=== PATIENT | female | born 1965 | race Caucasian/White ===

== ENCOUNTER 2018-05-01 16:13 | Inpatient (IN) | payer OTHER ==
[~2018-05-01] VITALS: Ht 165.1 cm; Wt 46.1 kg
[2018-05-01 16:00] VITALS: BP 148/67; PULSE 104; RESP 20
[2018-05-01 18:15] VITALS: Ht 165.1 cm; Wt 46.1 kg
--- NOTE | 2018-05-01 18:52 | HP ---
Date/Time of Note Date/Time of Note DATE: 05/01/18 TIME: 18:29 Assessment/Plan VTE Prophylaxis SCD applied (from Nsg): Yes Pharmacological prophylaxis: NA/contraindicated Pharm contraindication: low risk/ambulating Assessment/Plan Assessment/Plan 52 yo homeless woman history of duodenal ulcer presents with chronic abdominal pain and vomiting. #Abdominal pain #Vomiting #History of duodenal ulcer - Differential includes worsening peptic ulcer disease versus acute vs chronic pancreatitis. - Will make NPO, start IV fluids - Consult GI for EGD - PPI BID #Calcific pancreatitis on CT - Lipase 197, will repeat - NPO for now - May be due to heavy alcohol use. DVT: SCDs GI: PPI HPI/ROS Admit Date/Time Admit Date/Time May 01, 2018 at 17:19 Hx of Present Illness Ms. Cornejo is a 52 yo homeless woman transferred here from [facility] with abdominal pain. In Feb 2017 she had a large friable duodenal ulcer found on EGD done at [place]. Duodenal and gastric pathology was negative for malignancy. Since then she's been on pantoprazole. She was dropped to a daily dose about 3 months ago, then 1 week ago stopped completely. For about 1.5 months she reports chronic abdominal pain, intermittently stabbing and burning. This is associated with bilious emesis which occurs about once per day. She takes frequent pepto-bismol and alla-seltzer. Symptoms have been unchanged during this time, but she chose to present to the ED today because outpatient management wasn't working. In [place] ED she was afebrile, vitals stable. WBC 17.0, lipase 197. Ot [facility] labs unremarkable. CT abdomen showed diffuse gastric wall thickening as well as inflammatory changes of the pancreas consistent with chronic calcific pancreatitis. ROS She does report chills. Denies fever, night sweats, headache, vision changes, dysphagia, cough, dyspnea, chest pain/pressure/palpitations, melena, diarrhea, constipation, hematochezia. PMH/Family/Social Past Medical History large duodenal ulcer 02/2017 Past Surgical History "screws in feet" Pharyngeal abscess drainage Social History Homeless, lives in a tent. Alcohol Use: occasionally Smoking Status: Current every day smoker (4 cigars per week) Drug Use: marijuana Exam/Review of Systems Exam Exam Gen: Thin appearing woman anxious appearing no distress. Eyes: PERRL, no icterus HEENT: Moist mucous membranes, clear oropharynx, no pharyngeal erythema. Neck: No lymphadenopathy Card: Regular rate and rhythm, no murmurs Pulm: Clear to auscultation bilaterally Abd: Tender to moderate palpation throughout. Guarding. Normoactive bowel sounds. No rebound tenderness. Ext: No cyanosis/clubbing/edema Skin: warm, dry, well perfused. ANT FARR MD May 01, 2018 18:39
[2018-05-01] MEDS ORDERED: NACL 0.9% 3 ML SYG IV SCH (19:30)
[2018-05-01] MEDS ORDERED: ACETAMINOPHEN 325 MG TAB PO PRN (19:30)
[2018-05-01] MEDS ORDERED: ONDANSETRON 4 MG INJ IV PRN (19:30)
[2018-05-01 20:15] VITALS: BP 115/59; PULSE 100; RESP 18
[2018-05-01] MEDS: SOD CHLORIDE 0.9% 1,000 ML IV SCH (20:35)
[2018-05-01] MEDS: PANTOPRAZOLE 40 MG INJ IV SCH (20:36)
[2018-05-01] MEDS: HYDROCODONE/APAP (5/325) TAB PO PRN (20:36)
[2018-05-02 02:05] VITALS: BP 90/51; PULSE 85; RESP 17
[2018-05-02] MEDS: SOD CHLORIDE 0.9% 1,000 ML IV SCH ×4 (04:59→23:08)
[2018-05-02] MEDS: HYDROCODONE/APAP (5/325) TAB PO PRN ×4 (05:04→23:32)
[2018-05-02] MEDS: PANTOPRAZOLE 40 MG INJ IV SCH ×2 (05:05→17:36)
[2018-05-02 07:25] VITALS: BP 100/56; PULSE 93; RESP 16
--- NOTE | 2018-05-02 14:23 | PN ---
Date/Time of Note Date/Time of Note DATE: 05/02/18 TIME: 14:21 Assessment/Plan VTE Prophylaxis Risk score (from Ns)>0 risk: 1 SCD applied (from Ns): Yes Pharmacological prophylaxis: NA/contraindicated Pharm contraindication: low risk/ambulating Lines/Catheters IV C[facility]ter Type (from [facility]): Peripheral IV Urinary Cath still in place: No Assessment/Plan Assessment/Plan 52 yo homeless woman history of duodenal ulcer presents with chronic abdominal pain and vomiting. #Abdominal pain #Vomiting #History of duodenal ulcer - Differential includes worsening peptic ulcer disease versus acute vs chronic pancreatitis. - NPO, IV fluids - Dr. Villegas consulted. - PPI BID #Calcific pancreatitis on CT - Lipase 197, will repeat - NPO for now - The patient strictly denies heavy alcohol use; reports one beer prior to admission and last drink before that was weeks ago. She denies any alcohol history. DVT: SCDs GI: PPI Result Diagram: 05/02/1852205/02/1823 Results 24hrs Laboratory Tests Test 05/02/18 05:23 White Blood Count 9.6 Red Blood Count 2.93 L Hemoglobin 9.1 L Hematocrit 27.7 L Mean Corpuscular Volume 94.5 Mean Corpuscular Hemoglobin 31.1 Mean Corpuscular Hemoglobin Concent 32.9 Red Cell Distribution Width 13.0 Platelet Count 377 Mean Platelet Volume 9.7 Immature Granulocytes % 0.300 Neutrophils % 59.1 Lymphocytes % 31.7 Monocytes % 6.5 Eosinophils % 1.6 Basophils % 0.8 Nucleated Red Blood Cells % 0.0 Immature Granulocytes # 0.030 Neutrophils # 5.7 Lymphocytes # 3.0 H Monocytes # 0.6 Eosinophils # 0.2 Basophils # 0.1 Nucleated Red Blood Cells # 0.0 Sodium Level 135 Potassium Level 4.2 Chloride Level 105 Carbon Dioxide Level 26 Anion Gap 4 L Blood Urea Nitrogen 21 H Creatinine 0.59 Est Glomerular Filtrat Rate mL/min > 60 Glucose Level 65 L Hemoglobin A1c 5.8 Calcium Level 8.3 L Phosphorus Level 3.1 Magnesium Level 1.7 Total Bilirubin 0.3 Direct Bilirubin 0.00 Indirect Bilirubin 0.3 Aspartate Amino Transf (AST/SGOT) 18 Alanine Aminotransferase (ALT/SGPT) 20 Alkaline Phosphatase 58 Total Protein 5.2 L Albumin 2.7 L Globulin 2.50 Albumin/Globulin Ratio 1.08 Triglycerides Level 68 Cholesterol Level 117 LDL Cholesterol, Calculated 70 HDL Cholesterol 33 L Cholesterol/HDL Ratio 3.5 Thyroid Stimulating Hormone (TSH) 0.949 Subjective 24 Hr Interval Summary Free Text/Dictation No acute overnight events. Continues to have stabbing, burning mid abdominal pain. No nausea. She does report being very hungry. Exam/Review of Systems Exam Vitals Vital Signs Date Temp Pulse Resp B/P (MAP) Pulse Ox O2 O2 Flow FiO2 Time Delivery Rate 05/02/18 98.6 93 16 100/56 96 Room Air 07:25 (71) Exam Gen: Thin appearing woman anxious appearing no distress. Eyes: PERRL, no icterus HEENT: Moist mucous membranes, clear oropharynx, no pharyngeal erythema. Neck: No lymphadenopathy Card: Regular rate and rhythm, no murmurs Pulm: Clear to auscultation bilaterally Abd: Tender to moderate palpation throughout. Guarding. Normoactive bowel sounds. No rebound tenderness. Ext: No cyanosis/clubbing/edema Skin: warm, dry, well perfused. Results Results 24hrs Laboratory Tests Test 05/02/18 05:23 White Blood Count 9.6 Red Blood Count 2.93 L Hemoglobin 9.1 L Hematocrit 27.7 L Mean Corpuscular Volume 94.5 Mean Corpuscular Hemoglobin 31.1 Mean Corpuscular Hemoglobin Concent 32.9 Red Cell Distribution Width 13.0 Platelet Count 377 Mean Platelet Volume 9.7 Immature Granulocytes % 0.300 Neutrophils % 59.1 Lymphocytes % 31.7 Monocytes % 6.5 Eosinophils % 1.6 Basophils % 0.8 Nucleated Red Blood Cells % 0.0 Immature Granulocytes # 0.030 Neutrophils # 5.7 Lymphocytes # 3.0 H Monocytes # 0.6 Eosinophils # 0.2 Basophils # 0.1 Nucleated Red Blood Cells # 0.0 Sodium Level 135 Potassium Level 4.2 Chloride Level 105 Carbon Dioxide Level 26 Anion Gap 4 L Blood Urea Nitrogen 21 H Creatinine 0.59 Est Glomerular Filtrat Rate mL/min > 60 Glucose Level 65 L Hemoglobin A1c 5.8 Calcium Level 8.3 L Phosphorus Level 3.1 Magnesium Level 1.7 Total Bilirubin 0.3 Direct Bilirubin 0.00 Indirect Bilirubin 0.3 Aspartate Amino Transf (AST/SGOT) 18 Alanine Aminotransferase (ALT/SGPT) 20 Alkaline Phosphatase 58 Total Protein 5.2 L Albumin 2.7 L Globulin 2.50 Albumin/Globulin Ratio 1.08 Triglycerides Level 68 Cholesterol Level 117 LDL Cholesterol, Calculated 70 HDL Cholesterol 33 L Cholesterol/HDL Ratio 3.5 Thyroid Stimulating Hormone (TSH) 0.949 Medications Medication Current Medications Sodium Chloride 1,000 ml @ 125 mls/hr Q8H IV Last administered on 05/02/18at 13:20; Admin Dose 125 MLS/HR; Start 05/01/18 at 19:13 IV Flush (NS 3 ml) 3 ml PER PROTOCOL IV ; Start 05/01/18 at 19:30 Ondansetron HCl (Zofran Inj) 4 mg Q6H PRN IV NAUSEA/VOMITING; Start 05/01/18 at 19:30 Acetaminophen (Tylenol Tab) 650 mg Q6H PRN PO .PAIN 1-3 OR TEMP; Start 05/01/18 at 19:30 Acetaminophen/ Hydrocodone Bitart ([place] (5/325)) 1 tab Q6H PRN PO .MOD PAIN 4- 6 Last administered on 05/02/18at 11:19; Admin Dose 1 TAB; Start 05/01/18 at 19:30 Pantoprazole (Protonix Iv) 40 mg BID@0600,1800 IV Last administered on 05/02/18at 05:05; Admin Dose 40 MG; Start 05/01/18 at 21:00 ANT FARR MD May 02, 2018 14:23
--- NOTE | 2018-05-02 14:29 | CONS ---
Assessment/Plan Assessment/Plan Assessment/Plan (Daily) Assessment: Thickening of gastric wall and duodenum on CT History of 3.5 cm duodenal ulcer History of esophageal ulcer EGD 1 year ago Patient has been off PPIs for 2-month Calcific pancreatitis Pancreatic duct dilatation on CT Anemia Daily marijuana smoker Plan: MRCP today May start clear liquid diet Plan for EGD over the weekend Colonoscopy as an outpatient Monitor H&H Transfuse for hemoglobin less than 7.5 Patient seen in collaboration with Dr. Villegas Consultation Date/Type/Reason Admit Date/Time May 01, 2018 at 17:19 Date of Consultation: May 02, 2018 Type of Consult GI Reason for Consultation Abnormal CT-gastric and duodenal thickening, creating duct dilatation Date/Time of Note DATE: 05/02/18 TIME: 14:16 Hx of Present Illness This is a 52-year-old female with history of large duodenal ulcer who presents with abdominal pain, nausea and vomiting, transferred from [facility]. Patient was diagnosed with 3.5 cm duodenal ulcer and esophageal ulcers on EGD 1 year ago. Patient was started on PPIs for 6-month. Patient has been off PPIs for 2-month and now presents with current symptoms. CT of the abdomen shows thickening of the stomach and first portion of duodenum as well as calcific pancreatitis and dilatation of pancreatic duct. Currently patient denies nausea, vomiting, hematemesis, hematochezia, diarrhea or fever. Patient is complaining of moderate epigastric pain. Smokes 2 cigarettes a day. Drinks alcohol occasionally. Smokes marijuana daily. Patient was started on Protonix twice daily. Will order Carafate 4 times daily. 1 dose of GI cocktail. MRCP to evaluate pancreas. Patient can be started on clear liquid diet after MRCP. Plan for EGD during this admission. No history of colonoscopy. Plan for co lonoscopy as an outpatient. Gastrointestinal: no complaints (See HPI) Past Medical History Medical History: peptic ulcer disease Medications Current Medications Sodium Chloride 1,000 ml @ 125 mls/hr Q8H IV Last administered on 05/02/18at 13:20; Admin Dose 125 MLS/HR; Start 05/01/18 at 19:13 IV Flush (NS 3 ml) 3 ml PER PROTOCOL IV ; Start 05/01/18 at 19:30 Ondansetron HCl (Zofran Inj) 4 mg Q6H PRN IV NAUSEA/VOMITING; Start 05/01/18 at 19:30 Acetaminophen (Tylenol Tab) 650 mg Q6H PRN PO .PAIN 1-3 OR TEMP; Start 05/01/18 at 19:30 Acetaminophen/ Hydrocodone Bitart ([place] (5/325)) 1 tab Q6H PRN PO .MOD PAIN 4- 6 Last administered on 05/02/18at 11:19; Admin Dose 1 TAB; Start 05/01/18 at 19:30 Pantoprazole (Protonix Iv) 40 mg BID@0600,1800 IV Last administered on 05/02/18at 05:05; Admin Dose 40 MG; Start 05/01/18 at 21:00 Allergies: Coded Allergies: No Known Allergy (Unverified , 05/01/18) Social History Alcohol Use: occasionally Smoking Status: Current every day smoker (4 cigars per week) Drug Use: marijuana Exam/Review of Systems Exam Vitals Vital Signs Date Temp Pulse Resp B/P (MAP) Pulse Ox O2 O2 Flow FiO2 Time Delivery Rate 05/02/18 98.6 93 16 100/56 96 Room Air 07:25 (71) Exam PHYSICAL EXAMINATION: GENERAL: Well developed, well nourished, alert & oriented x 3, in no acute di stress SKIN: No lesions, no stigmata chronic liver disease, no evidence of bleeding diathesis LYMPHATIC: No palpable lymphadenopathy. HEAD: Normocephalic, atraumatic, no tenderness. EYES: Pupils equal reactive to light and accommodation, full extraocular movements, sclera clear, non-icteric, no discharge. EARS/NOSE AND THROAT: Ears normal, nose normal, oropharynx normal, oral membranes well hydrated without lesions. NECK: Supple, no masses, thyroid normal, JVP within normal limits, carotids norm al without bruits. CHEST: Inspection within normal limits. CARDIOVASCULAR: Heart: Regular rate and rhythm, no murmurs, gallops or rubs. Peripheral pulses present within normal limits, no cyanosis, clubbing or edemas. No pulsatile abdominal mass RESPIRATORY: Lungs clear to auscultation and percussion, no wheezing, no rubs GASTROINTESTINAL AND LIVER: Abdomen: Soft, moderate epigastric tenderness, non- distended, no hernias, no masses, no organomegaly, no ascites, no guarding, no rebound tenderness, normoactive bowel sounds. Rectal: Deferred. GENITOURINARY: Female genitalia within normal limits. EXTREMITIES: No cyanosis, clubbing or edema. Results Result Diagram: 05/02/18 0523 05/02/18 0523 Results 24hrs Laboratory Tests Test 05/02/18 05:23 White Blood Count 9.6 Red Blood Count 2.93 L Hemoglobin 9.1 L Hematocrit 27.7 L Mean Corpuscular Volume 94.5 Mean Corpuscular Hemoglobin 31.1 Mean Corpuscular Hemoglobin Concent 32.9 Red Cell Distribution Width 13.0 Platelet Count 377 Mean Platelet Volume 9.7 Immature Granulocytes % 0.300 Neutrophils % 59.1 Lymphocytes % 31.7 Monocytes % 6.5 Eosinophils % 1.6 Basophils % 0.8 Nucleated Red Blood Cells % 0.0 Immature Granulocytes # 0.030 Neutrophils # 5.7 Lymphocytes # 3.0 H Monocytes # 0.6 Eosinophils # 0.2 Basophils # 0.1 Nucleated Red Blood Cells # 0.0 Sodium Level 135 Potassium Level 4.2 Chloride Level 105 Carbon Dioxide Level 26 Anion Gap 4 L Blood Urea Nitrogen 21 H Creatinine 0.59 Est Glomerular Filtrat Rate mL/min > 60 Glucose Level 65 L Hemoglobin A1c 5.8 Calcium Level 8.3 L Phosphorus Level 3.1 Magnesium Level 1.7 Total Bilirubin 0.3 Direct Bilirubin 0.00 Indirect Bilirubin 0.3 Aspartate Amino Transf (AST/SGOT) 18 Alanine Aminotransferase (ALT/SGPT) 20 Alkaline Phosphatase 58 Total Protein 5.2 L Albumin 2.7 L Globulin 2.50 Albumin/Globulin Ratio 1.08 Triglycerides Level 68 Cholesterol Level 117 LDL Cholesterol, Calculated 70 HDL Cholesterol 33 L Cholesterol/HDL Ratio 3.5 Thyroid Stimulating Hormone (TSH) 0.949 Medications Medication Current Medications Sodium Chloride 1,000 ml @ 125 mls/hr Q8H IV Last administered on 05/02/18at 13:20; Admin Dose 125 MLS/HR; Start 05/01/18 at 19:13 IV Flush (NS 3 ml) 3 ml PER PROTOCOL IV ; Start 05/01/18 at 19:30 Ondansetron HCl (Zofran Inj) 4 mg Q6H PRN IV NAUSEA/VOMITING; Start 05/01/18 at 19:30 Acetaminophen (Tylenol Tab) 650 mg Q6H PRN PO .PAIN 1-3 OR TEMP; Start 05/01/18 at 19:30 Acetaminophen/ Hydrocodone Bitart ([place] (5/325)) 1 tab Q6H PRN PO .MOD PAIN 4- 6 Last administered on 05/02/18at 11:19; Admin Dose 1 TAB; Start 05/01/18 at 19:30 Pantoprazole (Protonix Iv) 40 mg BID@0600,1800 IV Last administered on 05/02/18at 05:05; Admin Dose 40 MG; Start 05/01/18 at 21:00 KEREN DELATORRE NP May 02, 2018 14:26
[2018-05-02] MEDS: SUCRALFATE (100 MG/ML) 10ML CUP PO SCH ×3 (15:14→21:52)
[2018-05-02 15:21] VITALS: BP 100/53; PULSE 77; RESP 17
[2018-05-02 20:22] VITALS: BP 92/54; PULSE 81; RESP 18
[2018-05-03] VITALS (11 sets, daily range): BP systolic 91–128; BP diastolic 41–65; PULSE 63–88; RESP 16–25
[2018-05-03] MEDS: HYDROCODONE/APAP (5/325) TAB PO PRN ×3 (05:52→17:57)
[2018-05-03] MEDS: PANTOPRAZOLE 40 MG INJ IV SCH ×2 (05:52→17:57)
[2018-05-03] MEDS: SOD CHLORIDE 0.9% 1,000 ML IV SCH ×4 (08:37→23:03)
[2018-05-03] MEDS: SUCRALFATE (100 MG/ML) 10ML CUP PO SCH ×5 (09:00→20:24)
--- NOTE | 2018-05-03 10:05 | PREAC ---
Date/Time of Note Date/Time of Note DATE: 05/03/18 TIME: 10:03 Anesthesia Eval and Record Evaluation Time Pre-Procedure Interview DATE: 05/03/18 TIME: 10:03 Age 52 Sex female NPO: 8 hrs Preoperative diagnosis ABDOMINAL PAIN Planned procedure EGD Past Medical History Past Medical History: Includes GI: Other (DUODENAL ULCERS) Heme: Anemia Surgery & Anesthesia Issues No known issue Meds Anticoagulation: No Beta Linette within 24 hr: No Reason Beta Linette not given: Pt. not on B-Linette Current Medications Sodium Chloride 1,000 ml @ 125 mls/hr Q8H IV Last administered on 05/03/18at 08:37; Admin Dose 125 MLS/HR; Start 05/01/18 at 19:13 IV Flush (NS 3 ml) 3 ml PER PROTOCOL IV ; Start 05/01/18 at 19:30 Ondansetron HCl (Zofran Inj) 4 mg Q6H PRN IV NAUSEA/VOMITING; Start 05/01/18 at 19:30 Acetaminophen (Tylenol Tab) 650 mg Q6H PRN PO .PAIN 1-3 OR TEMP; Start 05/01/18 at 19:30 Acetaminophen/ Hydrocodone Bitart ([place] (5/325)) 1 tab Q6H PRN PO .MOD PAIN 4- 6 Last administered on 05/03/18at 05:52; Admin Dose 1 TAB; Start 05/01/18 at 19:30 Pantoprazole (Protonix Iv) 40 mg BID@0600,1800 IV Last administered on 05/03/18at 05:52; Admin Dose 40 MG; Start 05/01/18 at 21:00 Sucralfate (Carafate Susp) 1 gm QID PO Last administered on 05/02/18at 21:52; Admin Dose 1 GM; Start 05/02/18 at 14:30 Meds reviewed: Yes Allergies Coded Allergies: No Known Allergy (Unverified , 05/01/18) Allergies Reviewed: Yes Labs/Studies Labs Reviewed: Reviewed by anesthesiologist Result Diagram: 05/03/1852405/03/18524 Laboratory Tests 05/03/18 05:25 test: Negative Pre-procedure Exam Last vitals Vital Signs Date Temp Pulse Resp B/P (MAP) Pulse Ox O2 O2 Flow FiO2 Time Delivery Rate 05/03/18 97.5 73 18 121/58 100 Room Air 09:48 (79) Airway: Adequate mouth opening, Adequate thyromental dist Mallampati: Mallampati I Teeth: Normal Lung: Normal Heart: Normal ASA Physical Status ASA physical status: 2 Emergency: None Planned Anesthetic General/MAC: MAC Planned Pain Management Parenteral pain med Pre-operative Attestations Prior to commencing anesthesia and surgery, the patient was re-evaluated, there was verification of: *The patient's identity *The results of appropriate recent lab work and preoperative vital signs *The above evaluation not changing prior to induction *Anesthetic plan, risk benefits, alternative and complications discussed with patient/family; questions answered; patient/family understands, accepts and wishes to proceed. KATHERINE MORTENSEN May 03, 2018 10:05
[2018-05-03] MEDS ORDERED: PROPOFOL 40 ML ONE (10:09)
[2018-05-03] MEDS ORDERED: LIDOCAINE 2% (SDV) 5 ML INJ ONE (10:10)
[2018-05-03] MEDS ORDERED: FENTAnyl 50 MCG/ML VIAL IV PRN ×2 (10:30)
[2018-05-03] MEDS ORDERED: LABETALOL HCL 20MG INJ IV PRN (10:30)
[2018-05-03] MEDS ORDERED: EPHEDrine SULFATE 50 MG/5 ML SYG IV PRN (10:30)
[2018-05-03] MEDS ORDERED: ONDANSETRON 4 MG INJ IV PRN (10:30)
[2018-05-03] MEDS ORDERED: METOCLOPRAMIDE 10 MG INJ IV PRN (10:30)
[2018-05-03] MEDS ORDERED: hydrALAzine 20 MG INJ IV PRN (10:30)
--- NOTE | 2018-05-03 10:36 | PAC ---
Date/Time of Note Date/Time of Note DATE: 05/03/18 TIME: 10:36 Post-Anesthesia Notes Post-Anesthesia Note Last documented vital signs Vital Signs Date Temp Pulse Resp B/P (MAP) Pulse Ox O2 O2 Flow FiO2 Time Delivery Rate 05/03/18 97.5 73 18 121/58 100 Room Air 1035 (79) Activity: WNL Respiratory function: WNL Cardiovascular function: WNL Mental status: Baseline Pain reasonably controlled: Yes Hydration appropriate: Yes Nausea/Vomiting absent: Yes KATHERINE MORTENSEN May 03, 2018 10:36
[2018-05-03] MEDS ORDERED: BARIUM SULF 2% 450 ML BTL (BERRY SMOOTHIE) PO ONE (11:00)
[2018-05-03] MEDS ORDERED: SOD CHLORIDE 0.9% 100 ML ONE (14:52)
[2018-05-03] MEDS ORDERED: IOHEXOL 300MG/ML 150 ML BTL ONE (14:52)
[2018-05-03] MEDS ORDERED: BARIUM SULFATE 135 ML (E-Z HD) PO ONE (15:14)
--- NOTE | 2018-05-03 15:54 | PN ---
Date/Time of Note Date/Time of Note DATE: 05/03/18 TIME: 15:48 Assessment/Plan VTE Prophylaxis Risk score (from Nsg)>0 risk: 1 SCD applied (from Nsg): Yes Pharmacological prophylaxis: NA/contraindicated Pharm contraindication: low risk/ambulating Lines/Catheters IV Catheter Type (from Nrs): Peripheral IV Urinary Cath still in place: No Assessment/Plan Assessment/Plan 52 yo homeless woman history of duodenal ulcer presents with chronic abdominal pain and vomiting. #Abdominal pain #Vomiting #duodenal ulcer - s/p EGD on 05/03 showing persistent duodenal ulcer not bleeding. - Continue clear liquid diet. - Dr. Villegas consulted, following. - PPI BID, carafate. - Now pending XR small bowel followthrough and then CT pancreas. #Calcific pancreatitis, chronic - Lipase 197 -> 100 - The patient strictly denies heavy alcohol use; reports one beer prior to [place] and last drink before that was weeks ago. She denies any alcohol history. - On MRI, pancreatic duct does look dilated - Will continue clear liquids. DVT: SCDs GI: PPI Result Diagram: 05/03/18 0525 05/03/18 0525 Subjective 24 Hr Interval Summary Free Text/Dictation To EGD this morning. Had large soft bowel movement after. Continues to have stabbing/burning abdominal pain. Tolerating clear liquids. Exam/Review of Systems Exam Vitals Vital Signs Date Temp Pulse Resp B/P (MAP) Pulse Ox O2 O2 Flow FiO2 Time Delivery Rate 05/03/18 99.1 85 17 111/65 98 Room Air 13:51 (80) Intake and Output 05/02/18 05/02/18 05/03/18 1414:59 22:59 06:59 IntakeIntake Total 1000 ml 735 ml 865 ml BalanceBalance 1000 ml 735 ml 865 ml Exam Gen: Thin appearing woman anxious appearing no distress. Eyes: PERRL, no icterus HEENT: Moist mucous membranes, clear oropharynx, no pharyngeal erythema. Neck: No lymphadenopathy Card: Regular rate and rhythm, no murmurs Pulm: Clear to auscultation bilaterally Abd: Tender to moderate palpation throughout. Guarding. Normoactive bowel sounds. No rebound tenderness. Ext: No cyanosis/clubbing/edema Skin: warm, dry, well perfused. Results Results 24hrs Laboratory Tests Test 05/03/18 05:25 White Blood Count 6.8 # Red Blood Count 2.90 L Hemoglobin 9.0 L Hematocrit 27.9 L Mean Corpuscular Volume 96.2 Mean Corpuscular Hemoglobin 31.0 Mean Corpuscular Hemoglobin Concent 32.3 Red Cell Distribution Width 13.2 Platelet Count 395 Mean Platelet Volume 9.7 Immature Granulocytes % 0.100 Neutrophils % 45.5 Lymphocytes % 44.9 Monocytes % 6.5 Eosinophils % 2.1 Basophils % 0.9 Nucleated Red Blood Cells % 0.0 Immature Granulocytes # 0.010 Neutrophils # 3.1 Lymphocytes # 3.1 H Monocytes # 0.4 Eosinophils # 0.1 Basophils # 0.1 Nucleated Red Blood Cells # 0.0 Sodium Level 138 Potassium Level 4.0 Chloride Level 108 Carbon Dioxide Level 25 Anion Gap 5 Blood Urea Nitrogen 15 Creatinine 0.59 Est Glomerular Filtrat Rate mL/min > 60 Glucose Level 68 L Calcium Level 8.6 Phosphorus Level 3.3 Magnesium Level 1.7 Lipase 104 Medications Medication Current Medications Sodium Chloride 1,000 ml @ 125 mls/hr Q8H IV Last administered on 05/03/18at 08:37; Admin Dose 125 MLS/HR; Start 05/01/18 at 19:13 IV Flush (NS 3 ml) 3 ml PER PROTOCOL IV ; Start 05/01/18 at 19:30 Ondansetron HCl (Zofran Inj) 4 mg Q6H PRN IV NAUSEA/VOMITING; Start 05/01/18 at 19:30 Acetaminophen (Tylenol Tab) 650 mg Q6H PRN PO .PAIN 1-3 OR TEMP; Start 05/01/18 at 19:30 Acetaminophen/ Hydrocodone Bitart ([place] (5/325)) 1 tab Q6H PRN PO .MOD PAIN 4- 6 Last administered on 05/03/18at 11:53; Admin Dose 1 TAB; Start 05/01/18 at 19:30 Pantoprazole (Protonix Iv) 40 mg BID@0600,1800 IV Last administered on 05/03/18at 05:52; Admin Dose 40 MG; Start 05/01/18 at 21:00 Sucralfate (Carafate Susp) 1 gm QID PO Last administered on 05/03/18at 11:54; Admin Dose 1 GM; Start 05/02/18 at 14:30 Fentanyl (Sublimaze) 25 mcg PACU ORDER PRN IV MILD PAIN 1-3; Start 05/03/18 at 10:30; Stop 05/03/18 at 17:00 Fentanyl (Sublimaze) 50 mcg PACU ORDER PRN IV MOD PAIN 4-6; Start 05/03/18 at 10:30; Stop 05/03/18 at 17:00 Ondansetron HCl (Zofran Inj) 4 mg PACU ORDER PRN IV NAUSEA/VOMITING; Start 05/03/18 at 10:30; Stop 05/03/18 at 17:00 Metoclopramide HCl (Reglan) 10 mg PACU ORDER PRN IV NAUSEA/VOMITING; Start 05/03/18 at 10:30; Stop 05/03/18 at 17:00 Labetalol HCl (Labetalol) 5 mg PACU ORDER PRN IV HIGH BLOOD PRESSURE; Start 05/03/18 at 10:30; Stop 05/03/18 at 17:00 Hydralazine HCl (Apresoline) 5 mg PACU ORDER PRN IV HIGH BLOOD PRESSURE; Start 05/03/18 at 10:30; Stop 05/03/18 at 17:00 Ephedrine Sulfate 5 mg PACU ORDER PRN IV BLOOD PRESSURE SUPPORT; Start 05/03/18 at 10:30; Stop 05/03/18 at 17:00 ANT FARR MD May 03, 2018 15:54
[2018-05-03] MEDS ORDERED: SIMETH/SOD BICARB/CIT AC PKT (E-Z- GAS II) PO ONE (16:10)
[2018-05-04] MEDS: HYDROCODONE/APAP (5/325) TAB PO PRN ×4 (00:22→18:38)
[2018-05-04 01:59] VITALS: BP 105/52; PULSE 74; RESP 18
[2018-05-04] MEDS: SOD CHLORIDE 0.9% 1,000 ML IV SCH ×4 (03:13→19:13)
[2018-05-04] MEDS: PANTOPRAZOLE 40 MG INJ IV SCH ×2 (06:29→17:10)
[2018-05-04 07:37] VITALS: BP 107/56; PULSE 73; RESP 16
[2018-05-04] MEDS: SUCRALFATE (100 MG/ML) 10ML CUP PO SCH ×4 (08:54→20:12)
[2018-05-04] MEDS ORDERED: MAGNESIUM SULFATE 2 GM/50 ML 50 ML IVPB ONE (10:30)
[2018-05-04 15:08] VITALS: BP 141/66; PULSE 91; RESP 17
--- NOTE | 2018-05-04 15:41 | PN ---
Date/Time of Note Date/Time of Note DATE: 05/04/18 TIME: 15:33 Assessment/Plan VTE Prophylaxis Risk score (from Nsg)>0 risk: 1 SCD applied (from Ns): Yes Pharmacological prophylaxis: NA/contraindicated Pharm contraindication: low risk/ambulating Lines/Catheters IV Catheter Type (from Nrsg): Peripheral IV Urinary Cath still in place: No Assessment/Plan Assessment/Plan 52 yo homeless woman history of duodenal ulcer presents with chronic abdominal pain and vomiting. #Abdominal pain #Vomiting #duodenal ulcer - s/p EGD on 05/03 showing persistent duodenal ulcer not bleeding. - Continue clear liquid diet, advance per GI - Dr. Villegas consulted - PPI BID, carafate. - XR small bowel followthrough negative for obstruction #Calcific pancreatitis, chronic - Lipase 197 -> 100 - The patient strictly denies heavy alcohol use; reports one beer prior to admission and last drink before that was weeks ago. She denies any alcohol history. - On MRI and CT, pancreatic duct does look dilated - Will continue clear liquids. DVT: SCDs GI: PPI Result Diagram: 05/04/18 0805 05/04/18 0805 Subjective 24 Hr Interval Summary Free Text/Dictation No acute overnight events. She continues to have burning/stabbing epigastric pain, worse when standing up, improved when hunched over. No nausea. She is asking to advance diet. I said NO. Exam/Review of Systems Exam Vitals Vital Signs Date Temp Pulse Resp B/P (MAP) Pulse Ox O2 O2 Flow FiO2 Time Delivery Rate 05/04/18 99.3 91 17 141/66 96 Room Air 15:08 (91) Intake and Output 05/03/18 05/03/18 05/04/18 1515:00 23:00 07:00 IntakeIntake Total 3090 ml 2390 ml 2280 ml BalanceBalance 3090 ml 2390 ml 2280 ml Exam Gen: Thin appearing woman anxious appearing no distress. Eyes: PERRL, no icterus HEENT: Moist mucous membranes, clear oropharynx, no pharyngeal erythema. Neck: No lymphadenopathy Card: Regular rate and rhythm, no murmurs Pulm: Clear to auscultation bilaterally Abd: Tender to moderate palpation throughout. Guarding. Normoactive bowel sounds. No rebound tenderness. Ext: No cyanosis/clubbing/edema Skin: warm, dry, well perfused. Results Results 24hrs Laboratory Tests Test 05/04/18 08:05 White Blood Count 7.0 Red Blood Count 2.88 L Hemoglobin 8.9 L Hematocrit 28.0 L Mean Corpuscular Volume 97.2 Mean Corpuscular Hemoglobin 30.9 Mean Corpuscular Hemoglobin Concent 31.8 L Red Cell Distribution Width 13.5 Platelet Count 401 Mean Platelet Volume 9.3 Immature Granulocytes % 0.100 Neutrophils % 57.4 Lymphocytes % 34.6 Monocytes % 5.6 Eosinophils % 1.6 Basophils % 0.7 Nucleated Red Blood Cells % 0.0 Immature Granulocytes # 0.010 Neutrophils # 4.0 Lymphocytes # 2.4 Monocytes # 0.4 Eosinophils # 0.1 Basophils # 0.1 Nucleated Red Blood Cells # 0.0 Sodium Level 141 Potassium Level 3.6 Chloride Level 109 Carbon Dioxide Level 28 Anion Gap 4 L Blood Urea Nitrogen 5 #L Creatinine 0.57 Est Glomerular Filtrat Rate mL/min > 60 Glucose Level 89 Calcium Level 8.2 L Phosphorus Level 2.9 Magnesium Level 1.5 L Medications Medication Current Medications Sodium Chloride 1,000 ml @ 125 mls/hr Q8H IV Last administered on 05/04/18at 06:29; Admin Dose 125 MLS/HR; Start 05/01/18 at 19:13 IV Flush (NS 3 ml) 3 ml PER PROTOCOL IV ; Start 05/01/18 at 19:30 Ondansetron HCl (Zofran Inj) 4 mg Q6H PRN IV NAUSEA/VOMITING; Start 05/01/18 at 19:30 Acetaminophen (Tylenol Tab) 650 mg Q6H PRN PO .PAIN 1-3 OR TEMP; Start 05/01/18 at 19:30 Acetaminophen/ Hydrocodone Bitart ([place] (5/325)) 1 tab Q6H PRN PO .MOD PAIN 4- 6 Last administered on 05/04/18at 12:34; Admin Dose 1 TAB; Start 05/01/18 at 19:30 Pantoprazole (Protonix Iv) 40 mg BID@0600,1800 IV Last administered on 05/04/18 06:29; Admin Dose 40 MG; Start 05/01/18 at 21:00 Sucralfate (Carafate Susp) 1 gm QID PO Last administered on 05/04/18at 12:34; Admin Dose 1 GM; Start 05/02/18 at 14:30 ANT FARR MD May 04, 2018 15:41
--- NOTE | 2018-05-04 16:58 | PN ---
Date/Time of Note Date/Time of Note DATE: 05/04/18 TIME: 16:50 Assessment/Plan VTE Prophylaxis Risk score (from Nsg)>0 risk: 1 SCD applied (from Nsg): Yes Pharmacological prophylaxis: NA/contraindicated Pharm contraindication: bleeding Lines/Catheters IV Catheter Type (from Nrsg): Peripheral IV Urinary Cath still in place: No Assessment/Plan Assessment/Plan Assessment: Thickening of gastric wall and duodenum on CT S/p EGD 05/03/18 -Giant duodenal ulcer -esophagitis History of 3.5 cm duodenal ulcer History of esophageal ulcer EGD 1 year ago Patient has been off PPIs for 2-month Calcific pancreatitis Pancreatic duct dilatation on CT Anemia Daily marijuana smoker Plan: Advance diet Recommend EUS to evaluate dilatation of pancreatic duct Colonoscopy as an outpatient Monitor H&H Transfuse for hemoglobin less than 7.5 Patient seen in collaboration with Dr. Villegas Subjective: Patient is feeling better today. She states epigastric pain resolved, C/o RLQ pain. Wants to eat. Will advance the diet to regular bland. Recommend EUS as and outpatient to evaluate pancreatic duct dilatation. Hemoglobin is stable. Continue observation . PHYSICAL EXAMINATION: GENERAL: Well developed, well nourished, alert & oriented x 3, in no acute distress SKIN: No lesions, no stigmata chronic liver disease, no evidence of bleeding diathesis LYMPHATIC: No palpable lymphadenopathy. HEAD: Normocephalic, atraumatic, no tenderness. EYES: Pupils equal reactive to light and accommodation, full extraocular movements, sclera clear, non-icteric, no discharge. EARS/NOSE AND THROAT: Ears normal, nose normal, oropharynx normal, oral membranes well hydrated without lesions. NECK: Supple, no masses, thyroid normal, JVP within normal limits, carotids normal without bruits. CHEST: Inspection within normal limits. CARDIOVASCULAR: Heart: Regular rate and rhythm, no murmurs, gallops or rubs. Peripheral pulses present within normal limits, no cyanosis, clubbing or edemas. No pulsatile abdominal mass RESPIRATORY: Lungs clear to auscultation and percussion, no wheezing, no rubs GASTROINTESTINAL AND LIVER: Abdomen: Soft, RLQ tenderness, non-distended, no hernias, no masses, no organomegaly, no ascites, no guarding, no rebound tenderness, normoactive bowel sounds. Rectal: Deferred. GENITOURINARY: Female genitalia within normal limits. EXTREMITIES: No cyanosis, clubbing or edema. Result Diagram: 05/04/1880405/04/1805 Results 24hrs Laboratory Tests Test 05/04/18 08:05 White Blood Count 7.0 Red Blood Count 2.88 L Hemoglobin 8.9 L Hematocrit 28.0 L Mean Corpuscular Volume 97.2 Mean Corpuscular Hemoglobin 30.9 Mean Corpuscular Hemoglobin Concent 31.8 L Red Cell Distribution Width 13.5 Platelet Count 401 Mean Platelet Volume 9.3 Immature Granulocytes % 0.100 Neutrophils % 57.4 Lymphocytes % 34.6 Monocytes % 5.6 Eosinophils % 1.6 Basophils % 0.7 Nucleated Red Blood Cells % 0.0 Immature Granulocytes # 0.010 Neutrophils # 4.0 Lymphocytes # 2.4 Monocytes # 0.4 Eosinophils # 0.1 Basophils # 0.1 Nucleated Red Blood Cells # 0.0 Sodium Level 141 Potassium Level 3.6 Chloride Level 109 Carbon Dioxide Level 28 Anion Gap 4 L Blood Urea Nitrogen 5 #L Creatinine 0.57 Est Glomerular Filtrat Rate mL/min > 60 Glucose Level 89 Calcium Level 8.2 L Phosphorus Level 2.9 Magnesium Level 1.5 L CC: DAPHNIE VILLEGAS MD ; Exam/Review of Systems Exam Vitals Vital Signs Date Temp Pulse Resp B/P (MAP) Pulse Ox O2 O2 Flow FiO2 Time Delivery Rate 05/04/18 99.3 91 17 141/66 96 Room Air 15:08 (91) Intake and Output 05/03/18 05/03/18 05/04/18 1515:00 23:00 07:00 IntakeIntake Total 3090 ml 2390 ml 2280 ml BalanceBalance 3090 ml 2390 ml 2280 ml Results Results 24hrs Laboratory Tests Test 05/04/18 08:05 White Blood Count 7.0 Red Blood Count 2.88 L Hemoglobin 8.9 L Hematocrit 28.0 L Mean Corpuscular Volume 97.2 Mean Corpuscular Hemoglobin 30.9 Mean Corpuscular Hemoglobin Concent 31.8 L Red Cell Distribution Width 13.5 Platelet Count 401 Mean Platelet Volume 9.3 Immature Granulocytes % 0.100 Neutrophils % 57.4 Lymphocytes % 34.6 Monocytes % 5.6 Eosinophils % 1.6 Basophils % 0.7 Nucleated Red Blood Cells % 0.0 Immature Granulocytes # 0.010 Neutrophils # 4.0 Lymphocytes # 2.4 Monocytes # 0.4 Eosinophils # 0.1 Basophils # 0.1 Nucleated Red Blood Cells # 0.0 Sodium Level 141 Potassium Level 3.6 Chloride Level 109 Carbon Dioxide Level 28 Anion Gap 4 L Blood Urea Nitrogen 5 #L Creatinine 0.57 Est Glomerular Filtrat Rate mL/min > 60 Glucose Level 89 Calcium Level 8.2 L Phosphorus Level 2.9 Magnesium Level 1.5 L Medications Medication Current Medications Sodium Chloride 1,000 ml @ 125 mls/hr Q8H IV Last administered on 05/04/18 06:29; Admin Dose 125 MLS/HR; Start 05/01/18 at 19:13 IV Flush (NS 3 ml) 3 ml PER PROTOCOL IV ; Start 05/01/18 at 19:30 Ondansetron HCl (Zofran Inj) 4 mg Q6H PRN IV NAUSEA/VOMITING; Start 05/01/18 at 19:30 Acetaminophen (Tylenol Tab) 650 mg Q6H PRN PO .PAIN 1-3 OR TEMP; Start 05/01/18 at 19:30 Acetaminophen/ Hydrocodone Bitart ([place] (5/325)) 1 tab Q6H PRN PO .MOD PAIN 4- 6 Last administered on 05/04/18 12:34; Admin Dose 1 TAB; Start 05/01/18 at 19:30 Pantoprazole (Protonix Iv) 40 mg BID@0600,1800 IV Last administered on 05/04/18 06:29; Admin Dose 40 MG; Start 05/01/18 at 21:00 Sucralfate (Carafate Susp) 1 gm QID PO Last administered on 05/04/18 12:34; Admin Dose 1 GM; Start 05/02/18 at 14:30 KEREN DELATORRE NP May 04, 2018 16:58
[2018-05-04 19:14] VITALS: BP 131/69; PULSE 82; RESP 16
[2018-05-05] MEDS: SOD CHLORIDE 0.9% 1,000 ML IV SCH ×5 (01:00→20:56)
[2018-05-05 01:46] VITALS: BP 115/66; PULSE 85; RESP 16
[2018-05-05] MEDS: HYDROCODONE/APAP (5/325) TAB PO PRN ×4 (01:58→21:31)
[2018-05-05] MEDS: PANTOPRAZOLE 40 MG INJ IV SCH (05:25)
[2018-05-05 08:04] VITALS: BP 114/78; PULSE 80; RESP 20
[2018-05-05] MEDS: SUCRALFATE (100 MG/ML) 10ML CUP PO SCH ×4 (08:41→20:56)
--- NOTE | 2018-05-05 15:17 | PN ---
Date/Time of Note Date/Time of Note DATE: 05/05/18 TIME: 15:13 Assessment/Plan VTE Prophylaxis Risk score (from Nsg)>0 risk: 1 SCD applied (from Nsg): Yes Pharmacological prophylaxis: other Lines/Catheters IV Catheter Type (from Nrsg): Peripheral IV Urinary Cath still in place: No Assessment/Plan Hospital Course S: Per nursing staff, patient tolerating current diet O: VS -see below PE: Gen: Thin appearing woman, lying in bed presently, sleeping, no acute distress Eyes: PERRL, no icterus HEENT: Moist mucous membranes, clear oropharynx, no pharyngeal erythema. Neck: No lymphadenopathy Card: Regular rate and rhythm, no murmurs Pulm: Clear to auscultation bilaterally Abd: Some tenderness to moderate palpation throughout. No rebound tenderness. Ext: No cyanosis/clubbing/edema Assessment/Plan: 52 yo homeless woman history of duodenal ulcer presents with chronic abdominal pain and vomiting. #Abdominal pain+Vomiting-again patient found with duodenal ulcer- s/p EGD on 05/03, not bleeding. - XR small bowel followthrough negative for obstruction - Continue clear liquid diet, advance per GI -GI recommending EUS, likely as outpatient to evaluate dilatation of pancreatic duct -Continue PPI BID, carafate. #Calcific pancreatitis, chronic- Lipase 197 -> 100- The patient strictly denies heavy alcohol use; reports one beer prior to admission and last drink before that was weeks ago. She denies any alcohol history- On MRI and CT, pancreatic duct does look dilated -Continue current diet recommended by GI team, follow up GI recommendations DVT: SCDs GI: PPI Result Diagram: 05/05/18 0431 05/05/18 0431 Results 24hrs Laboratory Tests Test 05/05/18 04:31 White Blood Count 9.8 # Red Blood Count 2.91 L Hemoglobin 9.0 L Hematocrit 28.5 L Mean Corpuscular Volume 97.9 Mean Corpuscular Hemoglobin 30.9 Mean Corpuscular Hemoglobin Concent 31.6 L Red Cell Distribution Width 13.8 Platelet Count 416 H Mean Platelet Volume 9.8 Immature Granulocytes % 0.300 Neutrophils % 59.3 Lymphocytes % 30.9 Monocytes % 7.1 Eosinophils % 1.8 Basophils % 0.6 Nucleated Red Blood Cells % 0.0 Immature Granulocytes # 0.030 Neutrophils # 5.8 Lymphocytes # 3.0 H Monocytes # 0.7 Eosinophils # 0.2 Basophils # 0.1 Nucleated Red Blood Cells # 0.0 Sodium Level 143 Potassium Level 4.1 Chloride Level 111 H Carbon Dioxide Level 26 Anion Gap 6 Blood Urea Nitrogen 3 L Creatinine 0.61 Est Glomerular Filtrat Rate mL/min > 60 Glucose Level 98 Calcium Level 7.9 L Phosphorus Level 2.8 Magnesium Level 1.8 Exam/Review of Systems Exam Vitals Vital Signs Date Temp Pulse Resp B/P (MAP) Pulse Ox O2 O2 Flow FiO2 Time Delivery Rate 05/05/18 98.8 80 20 114/78 99 08:04 (90) 05/04/18 Room Air 15:08 Intake and Output 05/04/18 05/04/18 05/05/18 1515:00 23:00 07:00 IntakeIntake Total 1200 ml 2600 ml 1820 ml BalanceBalance 1200 ml 2600 ml 1820 ml Results Results 24hrs Laboratory Tests Test 05/05/18 04:31 White Blood Count 9.8 # Red Blood Count 2.91 L Hemoglobin 9.0 L Hematocrit 28.5 L Mean Corpuscular Volume 97.9 Mean Corpuscular Hemoglobin 30.9 Mean Corpuscular Hemoglobin Concent 31.6 L Red Cell Distribution Width 13.8 Platelet Count 416 H Mean Platelet Volume 9.8 Immature Granulocytes % 0.300 Neutrophils % 59.3 Lymphocytes % 30.9 Monocytes % 7.1 Eosinophils % 1.8 Basophils % 0.6 Nucleated Red Blood Cells % 0.0 Immature Granulocytes # 0.030 Neutrophils # 5.8 Lymphocytes # 3.0 H Monocytes # 0.7 Eosinophils # 0.2 Basophils # 0.1 Nucleated Red Blood Cells # 0.0 Sodium Level 143 Potassium Level 4.1 Chloride Level 111 H Carbon Dioxide Level 26 Anion Gap 6 Blood Urea Nitrogen 3 L Creatinine 0.61 Est Glomerular Filtrat Rate mL/min > 60 Glucose Level 98 Calcium Level 7.9 L Phosphorus Level 2.8 Magnesium Level 1.8 Medications Medication Current Medications Sodium Chloride 1,000 ml @ 125 mls/hr Q8H IV Last administered on 05/05/18at 09:14; Admin Dose 125 MLS/HR; Start 05/01/18 at 19:13 IV Flush (NS 3 ml) 3 ml PER PROTOCOL IV ; Start 05/01/18 at 19:30 Ondansetron HCl (Zofran Inj) 4 mg Q6H PRN IV NAUSEA/VOMITING; Start 05/01/18 at 19:30 Acetaminophen (Tylenol Tab) 650 mg Q6H PRN PO .PAIN 1-3 OR TEMP; Start 05/01/18 at 19:30 Acetaminophen/ Hydrocodone Bitart ([place] (5/325)) 1 tab Q6H PRN PO .MOD PAIN 4- 6 Last administered on 05/05/18at 14:37; Admin Dose 1 TAB; Start 05/01/18 at 19:30 Pantoprazole (Protonix Iv) 40 mg BID@0600,1800 IV Last administered on 05/05/18at 05:25; Admin Dose 40 MG; Start 05/01/18 at 21:00 Sucralfate (Carafate Susp) 1 gm QID PO Last administered on 05/05/18at 14:37; Admin Dose 1 GM; Start 05/02/18 at 14:30 ABEBE SELLERS May 05, 2018 15:17
[2018-05-05 15:30] VITALS: BP 136/73; PULSE 86; RESP 20
[2018-05-05 15:43] VITALS: BP 156/80; PULSE 96; RESP 20
--- NOTE | 2018-05-05 17:32 | PN ---
Date/Time of Note Date/Time of Note DATE: 05/05/18 TIME: 17:22 Assessment/Plan VTE Prophylaxis Risk score (from Nsg)>0 risk: 1 SCD applied (from Nsg): Yes Pharmacological prophylaxis: other (scds) Lines/Catheters IV Catheter Type (from Nrsg): Peripheral IV Urinary Cath still in place: No Assessment/Plan Hospital Course Assessment: Thickening of gastric wall and duodenum on CT S/p EGD 05/03/18 -Giant duodenal ulcer -esophagitis History of 3.5 cm duodenal ulcer History of esophageal ulcer -EGD 1 year ago -Patient has been off PPIs for 2-month Pancreatic duct dilatation on CT Normocytic Anemia- stable Daily marijuana smoker Plan: continue PPI- indefinitely Continue Carafate x6 weeks Advance diet as tolerated Recommend EUS to evaluate dilatation of pancreatic duct as an out-pt as well as colonoscopy as an outpatient D/c planning per hospitalist Patient seen in collaboration with Dr. Villegas/Linda Subjective: Pt states she feeling better, tolerating diet and po pain medication well. Discussed need to continue PPI- indefinitely and Carafate x6 weeks as well as need to f/u with GI x1 week for out-pt EUS and out-pt colonoscopy pt verbalized understanding- we will also review pathology results at f/u Pt appears stable for GI point of view for out-pt management PHYSICAL EXAMINATION: GENERAL: Well developed, well nourished, alert & oriented x 3, in no acute distress SKIN: No lesions CHEST: Inspection within normal limits. CARDIOVASCULAR: Heart: Regular rate and rhythm RESPIRATORY: Lungs clear to auscultation GASTROINTESTINAL AND LIVER: Abdomen: Soft, RLQ tenderness, non-distended, no hernias, no masses, no organomegaly, no ascites, no guarding, no rebound tend erness, normoactive bowel sounds. Rectal: Deferred. GENITOURINARY: Female genitalia within normal limits. EXTREMITIES: No cyanosis, clubbing or edema. Result Diagram: 05/05/181 05/05/18 0431 Results 24hrs Laboratory Tests Test 05/05/18 04:31 White Blood Count 9.8 # Red Blood Count 2.91 L Hemoglobin 9.0 L Hematocrit 28.5 L Mean Corpuscular Volume 97.9 Mean Corpuscular Hemoglobin 30.9 Mean Corpuscular Hemoglobin Concent 31.6 L Red Cell Distribution Width 13.8 Platelet Count 416 H Mean Platelet Volume 9.8 Immature Granulocytes % 0.300 Neutrophils % 59.3 Lymphocytes % 30.9 Monocytes % 7.1 Eosinophils % 1.8 Basophils % 0.6 Nucleated Red Blood Cells % 0.0 Immature Granulocytes # 0.030 Neutrophils # 5.8 Lymphocytes # 3.0 H Monocytes # 0.7 Eosinophils # 0.2 Basophils # 0.1 Nucleated Red Blood Cells # 0.0 Sodium Level 143 Potassium Level 4.1 Chloride Level 111 H Carbon Dioxide Level 26 Anion Gap 6 Blood Urea Nitrogen 3 L Creatinine 0.61 Est Glomerular Filtrat Rate mL/min > 60 Glucose Level 98 Calcium Level 7.9 L Phosphorus Level 2.8 Magnesium Level 1.8 Exam/Review of Systems Exam Vitals Vital Signs Date Temp Pulse Resp B/P (MAP) Pulse Ox O2 O2 Flow FiO2 Time Delivery Rate 05/05/18 98.7 96 20 156/80 96 15:43 (105) 05/04/18 Room Air 15:08 Intake and Output 05/04/18 05/04/18 05/05/18 1515:00 23:00 07:00 IntakeIntake Total 1200 ml 2600 ml 1820 ml BalanceBalance 1200 ml 2600 ml 1820 ml Results Results 24hrs Laboratory Tests Test 05/05/18 04:31 White Blood Count 9.8 # Red Blood Count 2.91 L Hemoglobin 9.0 L Hematocrit 28.5 L Mean Corpuscular Volume 97.9 Mean Corpuscular Hemoglobin 30.9 Mean Corpuscular Hemoglobin Concent 31.6 L Red Cell Distribution Width 13.8 Platelet Count 416 H Mean Platelet Volume 9.8 Immature Granulocytes % 0.300 Neutrophils % 59.3 Lymphocytes % 30.9 Monocytes % 7.1 Eosinophils % 1.8 Basophils % 0.6 Nucleated Red Blood Cells % 0.0 Immature Granulocytes # 0.030 Neutrophils # 5.8 Lymphocytes # 3.0 H Monocytes # 0.7 Eosinophils # 0.2 Basophils # 0.1 Nucleated Red Blood Cells # 0.0 Sodium Level 143 Potassium Level 4.1 Chloride Level 111 H Carbon Dioxide Level 26 Anion Gap 6 Blood Urea Nitrogen 3 L Creatinine 0.61 Est Glomerular Filtrat Rate mL/min > 60 Glucose Level 98 Calcium Level 7.9 L Phosphorus Level 2.8 Magnesium Level 1.8 Medications Medication Current Medications Sodium Chloride 1,000 ml @ 125 mls/hr Q8H IV Last administered on 05/05/18 09:14; Admin Dose 125 MLS/HR; Start 05/01/18 at 19:13 IV Flush (NS 3 ml) 3 ml PER PROTOCOL IV ; Start 05/01/18 at 19:30 Ondansetron HCl (Zofran Inj) 4 mg Q6H PRN IV NAUSEA/VOMITING; Start 05/01/18 at 19:30 Acetaminophen (Tylenol Tab) 650 mg Q6H PRN PO .PAIN 1-3 OR TEMP; Start 05/01/18 at 19:30 Acetaminophen/ Hydrocodone Bitart ([place] (5/325)) 1 tab Q6H PRN PO .MOD PAIN 4- 6 Last administered on 05/05/18 14:37; Admin Dose 1 TAB; Start 05/01/18 at 19 :30 Pantoprazole (Protonix Iv) 40 mg BID@0600,1800 IV Last administered on 05/05/18 05:25; Admin Dose 40 MG; Start 05/01/18 at 21:00 Sucralfate (Carafate Susp) 1 gm QID PO Last administered on 05/05/18 14:37; Admin Dose 1 GM; Start 05/02/18 at 14:30 TAJ COMBS May 05, 2018 17:32
--- NOTE | 2018-05-05 17:57 | PDOCDIS ---
Discharge Instructions CONDITION [id number] Patient Condition: [id number] Stable HOME CARE INSTRUCTIONS: [id number] Diet Instructions: [id number] Low Fat /Cholesterol ACTIVITY: [id number] Activity Restrictions: [id number] Slowly Increase Activity Rest between Activity Avoid heavy lifting FOLLOW UP/APPOINTMENTS Follow-up Plan TAKE YOUR MEDS PRESCRIBED, SEE YOUR DOC IN CLINIC IN 1 WEEK. ABEBE SELLERS May 05, 2018 17:57
[2018-05-05] MEDS ORDERED: PANT40TA3 PO (17:58)
[2018-05-05] MEDS ORDERED: CARAS PO (17:58)
[2018-05-05] MEDS ORDERED: HYDR-3601 PO (17:58)
--- NOTE | 2018-05-05 18:04 | DS ---
Date/Time of Note Date/Time of Note DATE: 05/05/18 TIME: 18:01 Discharge Summary Admission/Discharge Info Admit Date/Time May 01, 2018 at 17:19 Discharge Date/Time Discharge Diagnosis #Abdominal pain+Vomiting-again patient found with duodenal ulcer- s/p EGD on 05/03, not bleeding. - XR small bowel followthrough negative for obstruction #Calcific pancreatitis, chronic- Lipase 197 -> 100- The patient strictly denies heavy alcohol use; reports one beer prior to admission and last drink before that was weeks ago. She denies any alcohol history # History of 3.5 cm duodenal ulcer - on Carafate + PPI Patient Condition: Stable Procedures EGD 05/03/18: -Giant duodenal ulcer -esophagitis Hx of Present Illness 52 yo homeless woman transferred here from [facility] with abdominal pain. In Feb 2017 she had a large friable duodenal ulcer found on EGD done at [facility]. Duodenal and gastric pathology was negative for malignancy. Since then she's been on pantoprazole. She was dropped to a daily dose about 3 months ago, then 1 week ago stopped completely. For about 1.5 months she reports chronic abdominal pain, intermittently stabbing and burning. This is associated with bilious emesis which occurs about once per day. She takes frequent pepto-bismol and alla-seltzer. Symptoms have been unchanged during this time, but she chose to present to the ED today because outpatient management wasn't working. In [place] ED she was afebrile, vitals stable. WBC 17.0, lipase 197. Otherwise labs unremarkable. CT abdomen showed diffuse gastric wall thickening as well as inflammatory changes of the pancreas consistent with chronic calcific pancreatitis. Hospital Course Pt was admitted and seen by the GI team during this hospital stay. She had a CT scan that showed thickening of gastric wall and duodenum on CT. there was also pancreatic duct dilatation on this imaging study. The patient underwent EGD and was finding of large duodenal ulcer as well as esophagitis. The ulcer however was nonbleeding. Patient was placed on PPI IV and Carafate. Her abdominal pain and nausea and vomiting symptoms improved with appropriate medications. She was also found with chronic pancreatitis, and during her hospital stay her lipase levels trended down and pain symptoms improved and resolved. She was able to ambulate and eventually tolerate diet that was advanced per GI recommendations. Vital signs are stable on the day of discharge. After getting clearance from speech correction consultant teams she will be discharged home today and in improved condition. See below for full list of discharge medications. Per GI recommendations, patient also needs to have an EUS performed to evaluate the findings of the dilatation of pancreatic duct as an out-pt as well as colonoscopy as an outpatient. Home Meds Active Scripts Pantoprazole* (Protonix*) 40 Mg Tablet.dr, 40 MG PO BID, #60 TAB 5 Refills Prov:ABEBE SELLERS S. 05/05/18 Sucralfate* (Carafate*) 1 Gm/10 Ml Susp, 1 GM PO QID for 45 Days, #180 Prov:ABEBE SELLERS S. 05/05/18 Hydrocodone Bit-Acetaminophen (Hydrocodone Bit-APAP) 5-325MG Tablet, 1 TAB PO Q6H PRN for .MOD PAIN 4-6, #15 TAB Prov:ABEBE SELLERS S. 05/05/18 Follow-up Plan TAKE YOUR MEDS PRESCRIBED, SEE YOUR DOC IN CLINIC IN 1 WEEK. Primary Care Provider Not On Staff Doctor Time spent on discharge: > 30 minutes Pending Labs Laboratory Tests Test 05/05/18 04:31 White Blood Count 9.8 10^3/ul (4.8-10.8) Red Blood Count 2.91 10^6/ul (4.20-5.40) Hemoglobin 9.0 g/dl (12.0-16.0) Hematocrit 28.5 % (37.0-47.0) Mean Corpuscular Volume 97.9 fl (82.0-101.0) Mean Corpuscular Hemoglobin 30.9 pg (29.0-33.0) Mean Corpuscular Hemoglobin Concent 31.6 g/dl (32.0-37.0) Red Cell Distribution Width 13.8 % (11.5-14.5) Platelet Count 416 10^3/UL (140-415) Mean Platelet Volume 9.8 fl (7.4-10.4) Immature Granulocytes % 0.300 % (0.001-0.429) Neutrophils % 59.3 % (39.0-77.0) Lymphocytes % 30.9 % (15.0-51.0) Monocytes % 7.1 % (0.0-11.0) Eosinophils % 1.8 % (0.0-7.0) Basophils % 0.6 % (0.0-2.0) Nucleated Red Blood Cells % 0.0 /100WBC (0.0-0.0) Immature Granulocytes # 0.030 10^3/ul (0.0-0.031) Neutrophils # 5.8 10^3/ul (1.6-7.5) Lymphocytes # 3.0 10^3/ul (0.8-2.9) Monocytes # 0.7 10^3/ul (0.3-0.9) Eosinophils # 0.2 10^3/ul (0.0-0.5) Basophils # 0.1 10^3/ul (0.0-0.1) Nucleated Red Blood Cells # 0.0 10^3/ul (0.0-0.0) Sodium Level 143 mmol/L (135-144) Potassium Level 4.1 mmol/L (3.5-5.1) Chloride Level 111 mmol/L (97-110) Carbon Dioxide Level 26 mmol/L (21-31) Anion Gap 6 (5-13) Blood Urea Nitrogen 3 mg/dl (7-20) Creatinine 0.61 mg/dl (0.44-1.00) Est Glomerular Filtrat Rate mL/min > 60 mL/min (>60) Glucose Level 98 mg/dl (70-220) Calcium Level 7.9 mg/dl (8.4-10.2) Phosphorus Level 2.8 mg/dl (2.5-4.9) Magnesium Level 1.8 mg/dl (1.7-2.5) ABEBE SELLERS May 05, 2018 18:04
[2018-05-05] MEDS: PANTOPRAZOLE (EC) 40 MG TAB PO SCH (18:51)
[2018-05-05 19:25] VITALS: BP 141/71; PULSE 100; RESP 18
[2018-05-06 01:45] VITALS: BP 135/72; PULSE 87; RESP 18
[2018-05-06] MEDS: SOD CHLORIDE 0.9% 1,000 ML IV SCH ×2 (03:13→04:12)
[2018-05-06] MEDS: HYDROCODONE/APAP (5/325) TAB PO PRN (04:12)
[2018-05-06] MEDS: PANTOPRAZOLE (EC) 40 MG TAB PO SCH (05:31)
[2018-05-06 07:40] VITALS: BP 141/90; PULSE 81; RESP 17
[2018-05-06] MEDS: SUCRALFATE (100 MG/ML) 10ML CUP PO SCH (08:30)
== END 2018-05-06 09:10 | disposition home or self-care (01) | DRG 384 ==
LOC: 2NE 17:19
PROVIDERS: ADMIT Internal Medicine; ATTEND Hospitalist
PROC: 0DB68ZX Excision of Stomach, Via Natural or Artificial Opening Endoscopic, Diagnostic (ICD-10-PCS; principal; 2018-05-03 10:00)
DX: K26.9 Duodenal ulcer, unspecified as acute or chronic, without hemorrhage or perforation (principal); E44.0 Moderate protein-calorie malnutrition; K86.1 Other chronic pancreatitis; Z68.1 Body mass index [BMI] 19.9 or less, adult; K20.9 Esophagitis, unspecified; K29.70 Gastritis, unspecified, without bleeding; Z59.0 Homelessness
CPT/HCPCS: 74177; 74181; 74240; 80048; 80053; 80061; 83036; 83690; 83735; 84100; 84443; 85025; 88305; 88312; C9113; J3475; J7030; Q9967

== ENCOUNTER 2018-10-08 08:30 | Inpatient (IN) | payer OTHER ==
[~2018-10-08] VITALS: Ht 165.1 cm; Wt 45.0 kg
[~2018-10-08 08:30] MED LIST: CARAS PO; ESCI20TA38 PO; HYDR-3601 PO; HYDR-3980 PO; HYDR-842 PO; NALO4SPR NS; PANT40TA3 PO
[2018-10-08] MEDS ORDERED: LIDOCAINE/MYLANTA 40 ML BTL PO STA (09:49)
[2018-10-08] MEDS ORDERED: ONDANSETRON 4 MG INJ IV STA (09:49)
[2018-10-08] MEDS ORDERED: morphine 4 MG/ML VIAL IV STA ×3 (09:49→14:56)
--- NOTE | 2018-10-08 10:08 | ERD ---
ER Documentation Chief Complaint Chief Complaint generalized abdominal x 2 weeks HPI 52-year-old female presenting with abdominal pain. Has a recent history of pancreatitis, esophagitis and duodenal ulcer. Presented with similar symptoms. States for the past 2 or 3 days has been having nausea vomiting severe abdominal pain unable to tolerate even water. No fever no chills, no chest pain no shortness of breath and no dysuria or diarrhea. No recent antibiotics. ROS All systems reviewed and are negative except as per history of present illness. Medications Home Meds Active Scripts Pantoprazole* (Protonix*) 40 Mg Tablet.dr, 40 MG PO BID, #60 TAB 5 Refills Prov:ABEBE SELLERS S. 05/05/18 Sucralfate* (Carafate*) 1 Gm/10 Ml Susp, 1 GM PO QID for 45 Days, #180 Prov:ABEBE SELLERS S. 05/05/18 Reported Medications Hydroxyzine Hcl* (Atarax*) 25 Mg Tab, 25 MG PO Q8H PRN for ITCHING, TAB 10/08/18 Escitalopram Oxalate* (Escitalopram Oxalate*) 20 Mg Tablet, 20 MG PO DAILY, #30 TAB 10/08/18 Discontinued Scripts Hydrocodone Bit-Acetaminophen (Hydrocodone Bit-APAP) 5-325MG Tablet, 1 TAB PO Q6H PRN for .MOD PAIN 4-6, #15 TAB Prov:MARLOABEBE S. 05/05/18 Allergies Allergies: Coded Allergies: No Known Allergy (Unverified , 10/08/18) PMhx/Soc History of Surgery: Yes (throat surgery (pt says no tonsillectomy) in 2001) Anesthesia Reaction: No Hx Neurological Disorder: No Hx Respiratory Disorders: Yes (Asthma) Hx Cardiac Disorders: No Hx Psychiatric Problems: No Hx Alcohol Use: Yes (Occasional) Hx Substance Use: No Hx Tobacco Use: No Physical Exam Vitals Vital Signs Date Temp Pulse Resp B/P (MAP) Pulse Ox O2 O2 Flow FiO2 Time Delivery Rate 10/08/18 97.9 84 22 142/68 96 Room Air 10:59 (92) 10/08/18 98.2 70 22 152/70 96 08:32 (97) Physical Exam Const: No acute distress Head: Atraumatic Eyes: Normal Conjunctiva ENT: Normal External Ears, Nose and Mouth. Neck: Full range of motion. No meningismus. Resp: Clear to auscultation bilaterally Cardio: Regular rate and rhythm, no murmurs Abd: Tender mild guarding abdominal pain no distention Skin: No petechiae or rashes Back: No midline or flank tenderness Ext: No cyanosis, or edema Neur: Awake and alert Psych: Normal Mood and Affect Result Diagram: 10/08/18 1010 10/08/18 1010 Results 24 hrs Laboratory Tests Test 10/08/18 10:10 10/08/18 10:45 White Blood Count 15.4 10^3/ul Red Blood Count 5.15 10^6/ul Hemoglobin 14.4 g/dl Hematocrit 46.0 % Mean Corpuscular Volume 89.3 fl Mean Corpuscular Hemoglobin 28.0 pg Mean Corpuscular Hemoglobin Concent 31.3 g/dl Red Cell Distribution Width 18.3 % Platelet Count 407 10^3/UL Mean Platelet Volume 10.0 fl Immature Granulocytes % 0.300 % Neutrophils % 75.9 % Lymphocytes % 18.1 % Monocytes % 4.6 % Eosinophils % 0.6 % Basophils % 0.5 % Nucleated Red Blood Cells % 0.0 /100WBC Immature Granulocytes # 0.050 10^3/ul Neutrophils # 11.7 10^3/ul Lymphocytes # 2.8 10^3/ul Monocytes # 0.7 10^3/ul Eosinophils # 0.1 10^3/ul Basophils # 0.1 10^3/ul Nucleated Red Blood Cells # 0.0 10^3/ul Sodium Level 141 mmol/L Potassium Level 3.8 mmol/L Chloride Level 99 mmol/L Carbon Dioxide Level 30 mmol/L Anion Gap 12 Blood Urea Nitrogen 22 mg/dl Creatinine 0.80 mg/dl Est Glomerular Filtrat Rate mL/min > 60 mL/min Glucose Level 142 mg/dl Calcium Level 9.7 mg/dl Total Bilirubin 0.6 mg/dl Direct Bilirubin 0.00 mg/dl Indirect Bilirubin 0.6 mg/dl Aspartate Amino Transf (AST/SGOT) 24 IU/L Alanine Aminotransferase (ALT/SGPT) 13 IU/L Alkaline Phosphatase 81 IU/L Troponin I < 0.012 ng/ml Total Protein 7.8 g/dl Albumin 4.5 g/dl Globulin 3.30 g/dl Albumin/Globulin Ratio 1.36 Lipase 79 U/L Urine Color NICKY Urine Clarity CLOUDY Urine pH 5.0 Urine Specific [place] 1.029 Urine Ketones TRACE mg/dL Urine Nitrite NEGATIVE mg/dL Urine Bilirubin 1+ mg/dL Urine Urobilinogen 2+ mg/dL Urine Leukocyte Esterase 2+ [place]/ul Urine Microscopic RBC 18 /HPF Urine Microscopic WBC 31 /HPF Urine Squamous Epithelial Cells MANY /HPF Urine Bacteria FEW /HPF Urine Mucus MANY /HPF Urine Hemoglobin 1+ mg/dL Urine Glucose NEGATIVE mg/dL Urine Total Protein 2+ mg/dl Current Medications Medications Dose Sig/Dane Start Time Status Last (Trade) Ordered Route PRN Stop Time Admin Dose Reason Admin Morphine 4 mg ONCE STAT 10/08/18 DC 10/08/18 Sulfate IV 09:49 10:05 (morphine) 10/08/18 09:50 Ondansetron 4 mg ONCE STAT 10/08/18 DC 10/08/18 HCl (Zofran IV 09:49 10:05 Inj) 10/08/18 09:50 40 ml ONCE STAT 10/08/18 DC 10/08/18 Miscellaneous PO 09:49 10:05 Medication 10/08/18 09:50 (Gi Cocktail (2)) IV Flush 10 ml STK-MED 10/08/18 DC 10/08/18 (NS 10 ml) ONCE .ROUTE 11:00 11:32 10/08/18 11:01 Sodium 100 ml @ ud STK-MED 10/08/18 DC 10/08/18 Chloride ONCE .ROUTE 11:00 11:32 10/08/18 11:01 Iohexol 150 ml STK-MED 10/08/18 DC 10/08/18 (Omnipaque ONCE .ROUTE 11:00 11:32 300mg/ ml) 10/08/18 11:01 Procedures/MDM Patient presents with abdominal pain, nausea and vomiting, has flatus , BM afebrile Patient is well appearing. Non acute abdominal exam. Low suspicion for AAA given no palpable mass . Low suspicion for mesenteric ischemia given pain not out of proportion to exam, and no major risk factors. Vitals are stable. CT shows contained perforation versus ulceration. Will consult GI and admit patient. Protonix drip and bolus initiated. Patient is not a cirrhotic. Departure Condition: Stable SLOAN GARCIA MD Oct 08, 2018 10:08
[2018-10-08] MEDS ORDERED: IOHEXOL 300MG/ML 150 ML BTL ONE (11:00)
[2018-10-08] MEDS ORDERED: SOD CHLORIDE 0.9% 100 ML ONE (11:00)
[2018-10-08] MEDS ORDERED: PANTOPRAZOLE IV 80 MG in SOD CHLORIDE 0.9% 100 ML IV STA (12:21)
[2018-10-08] MEDS ORDERED: PANTOPRAZOLE IV 80 MG in SOD CHLORIDE 0.9% 100 ML IVPB STA (12:21)
[2018-10-08] MEDS ORDERED: ONDANSETRON 4 MG INJ IV PRN ×2 (14:00→16:00)
[2018-10-08] MEDS ORDERED: ACETAMINOPHEN 325 MG TAB PO PRN ×2 (14:00→16:00)
--- NOTE | 2018-10-08 15:26 | HP ---
Date/Time of Note Date/Time of Note DATE: 10/08/18 TIME: 15:25 Assessment/Plan VTE Prophylaxis SCD applied (from Nsg): No SCD contraindicated: other Pharmacological prophylaxis: heparin Lines/Catheters IV Catheter Type (from Nrsg): Saline Lock Assessment/Plan Hospital Course Assessment and plan: 52-year-old female past medical history of calcific pancreatitis, prior duodenal ulcer, esophagitis who presents with abdominal pain, nausea vomiting, with contained perforation of the stomach area found on CT scan now. #Abdominal pain: Again likely secondary to the duodenal ulcer with contained perforation found on the CT scan. Patient also has a prior history of duodenal ulcer. -Keep patient n.p.o., IV fluids, antiemetic medications -Follow-up recommendations with the GI consult, as well as follow-up TSH, A1c, lipid panel #Prior calcific pancreatitis: Lipase levels are normal today -Monitor for now, see above, keep n.p.o. for now #Esophagitis: Diagnosed on her last admission in April 2018 -Again monitor, consider Carafate, PPI or H2 anabell IV Result Diagram: 10/08/18 1010 10/08/18 1010 Results 24hrs Laboratory Tests Test 10/08/18 10:10 10/08/18 10:45 White Blood Count 15.4 #H Red Blood Count 5.15 # Hemoglobin 14.4 # Hematocrit 46.0 # Mean Corpuscular Volume 89.3 Mean Corpuscular Hemoglobin 28.0 L Mean Corpuscular Hemoglobin Concent 31.3 L Red Cell Distribution Width 18.3 #H Platelet Count 407 Mean Platelet Volume 10.0 Immature Granulocytes % 0.300 Neutrophils % 75.9 Lymphocytes % 18.1 Monocytes % 4.6 Eosinophils % 0.6 Basophils % 0.5 Nucleated Red Blood Cells % 0.0 Immature Granulocytes # 0.050 H Neutrophils # 11.7 H Lymphocytes # 2.8 Monocytes # 0.7 Eosinophils # 0.1 Basophils # 0.1 Nucleated Red Blood Cells # 0.0 Sodium Level 141 Potassium Level 3.8 Chloride Level 99 Carbon Dioxide Level 30 Anion Gap 12 Blood Urea Nitrogen 22 H Creatinine 0.80 Est Glomerular Filtrat Rate mL/min > 60 Glucose Level 142 Calcium Level 9.7 Total Bilirubin 0.6 Direct Bilirubin 0.00 Indirect Bilirubin 0.6 Aspartate Amino Transf (AST/SGOT) 24 Alanine Aminotransferase (ALT/SGPT) 13 Alkaline Phosphatase 81 Troponin I < 0.012 Total Protein 7.8 Albumin 4.5 Globulin 3.30 H Albumin/Globulin Ratio 1.36 Lipase 79 Urine Color NICKY Urine Clarity CLOUDY A Urine pH 5.0 Urine Specific [place] 1.029 Urine Ketones TRACE A Urine Nitrite NEGATIVE Urine Bilirubin 1+ H Urine Urobilinogen 2+ H Urine Leukocyte Esterase 2+ H Urine Microscopic RBC 18 H Urine Microscopic WBC 31 H Urine Squamous Epithelial Cells MANY A Urine Bacteria FEW A Urine Mucus MANY A Urine Hemoglobin 1+ H Urine Glucose NEGATIVE Urine Total Protein 2+ H HPI/ROS Admit Date/Time Admit Date/Time Hx of Present Illness 52-year-old female past medical history of calcific pancreatitis, prior duodenal ulcer, esophagitis who presents with abdominal pain. Patient is also been complaining of nonbilious nonbloody vomiting for the last 2 to 3 days. She is also had decreased p.o. intake including mostly not being able to take in water. Patient denies any upper or lower GI bleeding, no fever no chills, no chest jamal n no shortness of breath and no dysuria or diarrhea. No recent antibiotics. When she came in today she had CT scan abdomen pelvis performed that showed signs of contained perforation in the stomach which is also fluid-filled and along with wall thickening. A call has been made out to the GI doctor who is going to come and evaluate the patient now. Patient was last treated at our hospital from May 01 February 02, 2019 for similar symptoms. PMH/Family/Social Past Medical History Medications Current Medications Pantoprazole 80 mg/Sodium Chloride 100 ml @ 10 mls/hr ONCE STAT IV Last administered on 10/08/18at 13:50; Admin Dose 10 MLS/HR; Start 10/08/18 at 12:21; Stop 10/08/18 at 22:20 Ondansetron HCl (Zofran Inj) 4 mg BRIDGE ORDER PRN IV NAUSEA/VOMITING; Start 10/08/18 at 14:00; Stop 10/09/18 at 13:59 Acetaminophen (Tylenol Tab) 650 mg ER BRIDGE PRN PO .MILD PAIN 1-3 OR TEMP; Start 10/08/18 at 14:00; Stop 10/09/18 at 13:59 Coded Allergies: No Known Allergy (Unverified , 10/08/18) Past Surgical History Past Surgical Hx: other (throat surgery 2002) Social History Alcohol Use: occasionally Smoking Status: Never smoker Drug Use: none Exam/Review of Systems Vital Signs Vitals Vital Signs Date Temp Pulse Resp B/P (MAP) Pulse Ox O2 O2 Flow FiO2 Time Delivery Rate 10/08/18 98.3 78 20 134/70 96 Room Air 13:22 (91) Exam Exam Constitutional: lying in bed, no acute distress Head: normocephalic, atraumatic Eyes: EOMI, PERRL Respiratory: clear to auscultation, normal air movement Cardiovascular: S1, S2 heard Gastrointestinal: soft, some tenderness to palpation, positive guarding, no rebound Extremities: no bilateral lower extremity edema Neuro: No focal deficits ABEBE SELLERS Oct 08, 2018 15:26
[2018-10-08] MEDS: SOD CHLORIDE 0.9% 1,000 ML IV SCH ×2 (15:51→21:31)
--- NOTE | 2018-10-08 15:51 | CONS ---
Assessment/Plan Assessment/Plan Hospital Course (Demo Recall) Summary Assessment and Plan: Assessment: Questionable contained duodenal ulcer perforation Leukocytosis History of duodenal ulcer, gastritis -Pathology positive for H. pylori-upon discharge will provide prescription for H. pylori treatment Marijuana use Current Smoker Previous pancreatic duct dilatation on CT in Apr - not appreciated on recent imaging Plan: No recommendations for endoscopic evaluation at this time Repeat CT abdomen pelvis with IV and water-soluble contrast to further assess questionable contained duodenal ulcer perforation PPI therapy Strict n.p.o. IV fluids Pain management Seen in collaboration with Dr. Villegas CC: DAPHNIE VILLEGAS MD ; Consultation Date/Type/Reason Admit Date/Time Date of Consultation: Oct 08, 2018 Type of Consult GI Reason for Consultation Abdominal pain Duodenal ulcer questionable contained perforation Date/Time of Note DATE: 10/08/18 TIME: 15:38 Hx of Present Illness This is a 52-year-old female with past medical history of large duodenal ulcer, previously had an upper endoscopy in April by Dr. Villegas revealed a giant duodenal ulcer, and gastritis biopsies of duodenal ulcer showed no malignancy, dysplasia or viral cytopathic effect identified. Gastric biopsies show no dysplasia or intestinal metaplasia and a Gram stain with an appropriate controls positive for H. pylori organisms. Patient states she was not able to follow-up after discharge in April secondary to insurance reasons she has been on PPI therapy up until about 1 week ago when medication was complicated by police per patient she states she has been having abdominal pain for the past 2 months whi ch is progressively worse and noted severe abdominal pain times the past 48 hours associate with nausea nonbloody vomiting. Here imaging was obtained including a CT abdomen pelvis with IV contrast showing fluid-filled distention of the stomach there is edematous thickening of the [place] of the distal stomach/pylorus with surrounding fluid. There is a 2.7 cm focal pouch containing fluid and air communication with the wall of the pylorus and findings may represent ulceration or contained perforation. Per radiology upper endoscopy is recommended. Malignancy is not completely excluded. There is probable at least partial gastric outlet obstruction, no evidence of bowel obstruction. Stool filled loops of large bowel suggests constipation, that is post hysterectomy, several fluid-filled loops of small bowel within the lower abdomen/pelvis were mildly distended with, probably ileus. Evaluation patient continues to complain of abdominal pain with nausea currently no vomiting. Review of Systems: A 12 system, review was conducted and is negative except as noted in the HPI or here. Past Medical History Home Meds Active Scripts Pantoprazole* (Protonix*) 40 Mg Tablet.dr, 40 MG PO BID, #60 TAB 5 Refills Prov:ABEBE SELLERS S. 05/05/18 Sucralfate* (Carafate*) 1 Gm/10 Ml Susp, 1 GM PO QID for 45 Days, #180 Prov:ABEBE SELLERS S. 05/05/18 Reported Medications Hydroxyzine Hcl* (Atarax*) 25 Mg Tab, 25 MG PO Q8H PRN for ITCHING, TAB 10/08/18 Escitalopram Oxalate* (Escitalopram Oxalate*) 20 Mg Tablet, 20 MG PO DAILY, #30 TAB 10/08/18 Discontinued Scripts Hydrocodone Bit-Acetaminophen (Hydrocodone Bit-APAP) 5-325MG Tablet, 1 TAB PO Q6H PRN for .MOD PAIN 4-6, #15 TAB Prov:ABEBE SELLERS S. 05/05/18 Medications Current Medications Pantoprazole 80 mg/Sodium Chloride 100 ml @ 10 mls/hr ONCE STAT IV Last administered on 10/08/18at 13:50; Admin Dose 10 MLS/HR; Start 10/08/18 at 12:21; Stop 10/08/18 at 22:20 Ondansetron HCl (Zofran Inj) 4 mg BRIDGE ORDER PRN IV NAUSEA/VOMITING; Start 10/08/18 at 14:00; Stop 10/09/18 at 13:59 Acetaminophen (Tylenol Tab) 650 mg ER BRIDGE PRN PO .MILD PAIN 1-3 OR TEMP; Start 10/08/18 at 14:00; Stop 10/09/18 at 13:59 Allergies: Coded Allergies: No Known Allergy (Unverified , 10/08/18) Social History Smoking Status: Never smoker Exam/Review of Systems Exam Vitals Vital Signs Date Temp Pulse Resp B/P (MAP) Pulse Ox O2 O2 Flow FiO2 Time Delivery Rate 10/08/18 98.3 78 20 134/70 96 Room Air 13:22 (91) Exam PHYSICAL EXAMINATION: GENERAL:Alert & oriented x 3, in no acute distress SKIN: No lesions HEAD: Normocephalic, atraumatic, no tenderness. EYES: Pupils equal reactive to light and accommodation, no discharge. EARS/NOSE AND THROAT: Ears normal, nose normal. NECK: Supple, no masses, thyroid normal. CHEST: Inspection within normal limits. CARDIOVASCULAR: Heart: Regular rate and rhythm RESPIRATORY: Lungs clear to auscultation GASTROINTESTINAL AND LIVER: Abdomen: Soft,upper abdominal pain, non-distended, no hernias, no masses, no organomegaly, no ascites, no guarding, no rebound tenderness, normoactive bowel sounds. Rectal: Deferred. EXTREMITIES: No cyanosis, clubbing or edema. Results Result Diagram: 10/08/18 1010 10/08/18 1010 Results 24hrs Laboratory Tests Test 10/08/18 10:10 10/08/18 10:45 White Blood Count 15.4 #H Red Blood Count 5.15 # Hemoglobin 14.4 # Hematocrit 46.0 # Mean Corpuscular Volume 89.3 Mean Corpuscular Hemoglobin 28.0 L Mean Corpuscular Hemoglobin Concent 31.3 L Red Cell Distribution Width 18.3 #H Platelet Count 407 Mean Platelet Volume 10.0 Immature Granulocytes % 0.300 Neutrophils % 75.9 Lymphocytes % 18.1 Monocytes % 4.6 Eosinophils % 0.6 Basophils % 0.5 Nucleated Red Blood Cells % 0.0 Immature Granulocytes # 0.050 H Neutrophils # 11.7 H Lymphocytes # 2.8 Monocytes # 0.7 Eosinophils # 0.1 Basophils # 0.1 Nucleated Red Blood Cells # 0.0 Sodium Level 141 Potassium Level 3.8 Chloride Level 99 Carbon Dioxide Level 30 Anion Gap 12 Blood Urea Nitrogen 22 H Creatinine 0.80 Est Glomerular Filtrat Rate mL/min > 60 Glucose Level 142 Calcium Level 9.7 Total Bilirubin 0.6 Direct Bilirubin 0.00 Indirect Bilirubin 0.6 Aspartate Amino Transf (AST/SGOT) 24 Alanine Aminotransferase (ALT/SGPT) 13 Alkaline Phosphatase 81 Troponin I < 0.012 Total Protein 7.8 Albumin 4.5 Globulin 3.30 H Albumin/Globulin Ratio 1.36 Lipase 79 Urine Color NICKY Urine Clarity CLOUDY A Urine pH 5.0 Urine Specific [place] 1.029 Urine Ketones TRACE A Urine Nitrite NEGATIVE Urine Bilirubin 1+ H Urine Urobilinogen 2+ H Urine Leukocyte Esterase 2+ H Urine Microscopic RBC 18 H Urine Microscopic WBC 31 H Urine Squamous Epithelial Cells MANY A Urine Bacteria FEW A Urine Mucus MANY A Urine Hemoglobin 1+ H Urine Glucose NEGATIVE Urine Total Protein 2+ H Medications Medication Current Medications Pantoprazole 80 mg/Sodium Chloride 100 ml @ 10 mls/hr ONCE STAT IV Last administered on 10/08/18at 13:50; Admin Dose 10 MLS/HR; Start 10/08/18 at 12:21; Stop 10/08/18 at 22:20 Ondansetron HCl (Zofran Inj) 4 mg BRIDGE ORDER PRN IV NAUSEA/VOMITING; Start 10/08/18 at 14:00; Stop 10/09/18 at 13:59 Acetaminophen (Tylenol Tab) 650 mg ER BRIDGE PRN PO .MILD PAIN 1-3 OR TEMP; Start 10/08/18 at 14:00; Stop 10/09/18 at 13:59 TAJ COMBS Oct 08, 2018 15:50
[2018-10-08] MEDS ORDERED: MAGNESIUM HYDROXIDE 30ML CUP PO PRN (16:00)
[2018-10-08] MEDS ORDERED: METOCLOPRAMIDE 10 MG INJ IV PRN (16:00)
[2018-10-08] MEDS ORDERED: ONDANSETRON INJ 8 MG in SOD CHLORIDE 0.9% 50 ML IV PRN (16:00)
[2018-10-08] MEDS ORDERED: ALBUTEROL/IPRATROPIUM (NEB) 3 ML AMP HHN PRN (16:00)
[2018-10-08] MEDS ORDERED: LORAZEPAM 2 MG INJ IV PRN (16:00)
[2018-10-08] MEDS ORDERED: NACL 0.9% 3 ML SYG IV SCH (16:00)
[2018-10-08] MEDS ORDERED: DOCUSATE SODIUM 100 MG CAP PO PRN (16:00)
[2018-10-08] MEDS ORDERED: NITROGLYCERIN (SL) 0.4 MG TAB SL PRN (16:00)
[2018-10-08] MEDS ORDERED: hydrALAzine 20 MG INJ IV PRN (16:00)
[2018-10-08] MEDS ORDERED: IOHEXOL 14.3 MG(I)/ML (ADULT) BTL PO ONE (16:00)
[2018-10-08] MEDS: morphine 2 MG INJ IV PRN ×2 (17:50→22:01)
[2018-10-08 19:42] VITALS: BP 95/53; PULSE 80; RESP 20
[2018-10-08 20:32] VITALS: Ht 165.1 cm; Wt 45.0 kg
[2018-10-08] MEDS: PANTOPRAZOLE 40 MG INJ IV SCH (21:21)
[2018-10-08] MEDS: HEPARIN 5,000 UNIT/1 ML VIAL SC SCH (21:25)
[2018-10-09 00:33] VITALS: BP 90/50; RESP 18
[2018-10-09 05:00] VITALS: BP 95/52; RESP 20
[2018-10-09 07:11] VITALS: BP 98/73; PULSE 81; RESP 16
[2018-10-09] MEDS: DEXTROSE 5%-0.45% NACL 1,000 ML IV SCH ×2 (07:19→20:53)
[2018-10-09] MEDS: PANTOPRAZOLE 40 MG INJ IV SCH ×2 (09:08→20:53)
[2018-10-09] MEDS: HEPARIN 5,000 UNIT/1 ML VIAL SC SCH ×2 (09:09→20:55)
[2018-10-09] MEDS: morphine 2 MG INJ IV PRN ×2 (09:27→19:34)
[2018-10-09] MEDS ORDERED: IOHEXOL 14.3 MG(I)/ML (ADULT) BTL PO ONE (11:00)
[2018-10-09] MEDS ORDERED: IOHEXOL 300MG/ML 150 ML BTL ONE (11:36)
[2018-10-09] MEDS ORDERED: SOD CHLORIDE 0.9% 100 ML ONE (11:36)
--- NOTE | 2018-10-09 12:46 | PN ---
Date/Time of Note Date/Time of Note DATE: 10/09/18 TIME: 12:41 Assessment/Plan VTE Prophylaxis Risk score (from Ns)>0 risk: 3 SCD applied (from Ns): No SCD contraindicated: other Pharmacological prophylaxis: heparin Lines/Catheters [facility]from [facility] Saline Lock Urinary Cath still in place: No Assessment/Plan Hospital Course S: Patient asking if she can eat. Seen by GI team yesterday. Had repeat CT scan performed today. Still n.p.o., no acute events overnight. O: VS- see below PE: Constitutional: lying in bed, no acute distress Head: normocephalic, atraumatic Eyes: EOMI, PERRL Respiratory: clear to auscultation, normal air movement Cardiovascular: S1, S2 heard Gastrointestinal: soft, some tenderness to palpation, positive guarding, no rebound Extremities: no bilateral lower extremity edema Neuro: No focal deficits A. CT scan abdomen and pelvis with IV contrast October 08, 2018: IMPRESSION: 1. FLUID-FILLED DISTENSION OF THE STOMACH. THERE IS EDEMATOUS THICKENING OF THE HANSEN OF THE DISTAL STOMACH/PYLORUS, WITH SURROUNDING FLUID. THERE IS A 2.7 CM FOCAL POUCH, CONTAINING FLUID AND AIR, WITH COMMUNICATION WITH THE WALL OF THE PYLORUS AND FINDINGS MAY REPRESENT ULCERATION OR CONTAINED PERFORATION. RECOMMEND FOLLOW-UP UPPER GI ENDOSCOPY. MALIGNANCY IS NOT COMPLETELY EXCLUDED. THERE IS PROBABLE AT LEAST PARTIAL GASTRIC OUTLET OBSTRUCTION. 2. No evidence of bowel obstruction. Stool filled loops of large bowel suggestive of constipation. The appendix is within normal limits. 3. Status post hysterectomy. 4. Several fluid filled loops of small bowel within the lower abdomen/pelvis wh ich are mildly distended, probably ileus. B. CT Abdomen and Pelvis with intravenous contrast October 09, 2018: IMPRESSION: Redemonstration of a 2.6 cm structure at the distal stomach and proximal duo denum with fluid and air. Evaluation is limited due to suboptimal enteric contrast opacification at this region. Findings may represent contained ulcer perforation or duodenal diverticulum. Again, this may be further evaluated with upper endoscopy. No significant interval change. Assessment and plan: 52-year-old female past medical history of calcific pancreatitis, prior duodenal ulcer, esophagitis who presents with abdominal pain, nausea vomiting, with contained perforation of the stomach area found on CT abdomen pelvis. #Abdominal pain: Again likely secondary to the duodenal ulcer with contained perforation found on the CT scan. Repeat CT scan abdomen pelvis with IV contrast results from this morning noted as well. Patient also has a prior history of duodenal ulcer. -For now continue to keep patient n.p.o., and continue IV fluids, antiemetic medications -Follow-up recommendations with the GI consult #Prior calcific pancreatitis: Lipase levels are normal -Monitor for now, see above, keep n.p.o. for now #Esophagitis: Diagnosed on her last admission in April 2018 -Again monitor, follow further GI recommendations #Apparent smoking history: Counseled on cessation, ordered nicotine patch Result Diagram: 10/09/18 0434 10/09/18 0434 Results 24hrs Laboratory Tests Test 10/09/18 04:34 White Blood Count 7.8 # Red Blood Count 4.01 #L Hemoglobin 11.3 #L Hematocrit 37.1 Mean Corpuscular Volume 92.5 Mean Corpuscular Hemoglobin 28.2 L Mean Corpuscular Hemoglobin Concent 30.5 L Red Cell Distribution Width 18.2 H Platelet Count 294 # Mean Platelet Volume 10.2 Immature Granulocytes % 0.300 Neutrophils % 59.2 Lymphocytes % 30.6 Monocytes % 6.9 Eosinophils % 2.4 Basophils % 0.6 Nucleated Red Blood Cells % 0.0 Immature Granulocytes # 0.020 Neutrophils # 4.6 Lymphocytes # 2.4 Monocytes # 0.5 Eosinophils # 0.2 Basophils # 0.1 Nucleated Red Blood Cells # 0.0 Sodium Level 138 Potassium Level 4.1 Chloride Level 103 Carbon Dioxide Level 27 Anion Gap 8 Blood Urea Nitrogen 23 H Creatinine 0.83 Est Glomerular Filtrat Rate mL/min > 60 Glucose Level 47 #*L Hemoglobin A1c 5.7 Calcium Level 8.6 Phosphorus Level 4.0 Magnesium Level 1.9 Triglycerides Level 87 Cholesterol Level 145 LDL Cholesterol, Calculated 95 HDL Cholesterol 33 L Cholesterol/HDL Ratio 4.3 Thyroid Stimulating Hormone (TSH) 2.090 Exam/Review of Systems Exam Vitals Vital Signs Date Temp Pulse Resp B/P (MAP) Pulse Ox O2 O2 Flow FiO2 Time Delivery Rate 10/09/18 98.5 81 16 98/73 (81) 90 07:11 10/09/18 Room Air 05:00 Intake and Output 10/08/18 10/08/18 10/09/18 1515:00 23:00 07:00 IntakeIntake Total 800 ml BalanceBalance 800 ml Results Results 24hrs Laboratory Tests Test 10/09/18 04:34 White Blood Count 7.8 # Red Blood Count 4.01 #L Hemoglobin 11.3 #L Hematocrit 37.1 Mean Corpuscular Volume 92.5 Mean Corpuscular Hemoglobin 28.2 L Mean Corpuscular Hemoglobin Concent 30.5 L Red Cell Distribution Width 18.2 H Platelet Count 294 # Mean Platelet Volume 10.2 Immature Granulocytes % 0.300 Neutrophils % 59.2 Lymphocytes % 30.6 Monocytes % 6.9 Eosinophils % 2.4 Basophils % 0.6 Nucleated Red Blood Cells % 0.0 Immature Granulocytes # 0.020 Neutrophils # 4.6 Lymphocytes # 2.4 Monocytes # 0.5 Eosinophils # 0.2 Basophils # 0.1 Nucleated Red Blood Cells # 0.0 Sodium Level 138 Potassium Level 4.1 Chloride Level 103 Carbon Dioxide Level 27 Anion Gap 8 Blood Urea Nitrogen 23 H Creatinine 0.83 Est Glomerular Filtrat Rate mL/min > 60 Glucose Level 47 #*L Hemoglobin A1c 5.7 Calcium Level 8.6 Phosphorus Level 4.0 Magnesium Level 1.9 Triglycerides Level 87 Cholesterol Level 145 LDL Cholesterol, Calculated 95 HDL Cholesterol 33 L Cholesterol/HDL Ratio 4.3 Thyroid Stimulating Hormone (TSH) 2.090 Medications Medication Current Medications Ondansetron HCl (Zofran Inj) 4 mg BRIDGE ORDER PRN IV NAUSEA/VOMITING; Start 10/08/18 at 14:00; Stop 10/09/18 at 13:59 Acetaminophen (Tylenol Tab) 650 mg ER BRIDGE PRN PO .MILD PAIN 1-3 OR TEMP; Start 10/08/18 at 14:00; Stop 10/09/18 at 13:59 IV Flush (NS 3 ml) 3 ml PER PROTOCOL IV ; Start 10/08/18 at 16:00 Metoclopramide HCl (Reglan) 10 mg Q6H PRN IV NAUSEA/VOMITING; Start 10/08/18 at 16:00 Acetaminophen (Tylenol Tab) 650 mg Q6H PRN PO .PAIN 1-3 OR TEMP; Start 10/08/18 at 16:00 Acetaminophen/ Hydrocodone Bitart ([place] (5/325)) 1 tab Q6H PRN PO .MOD PAIN 4- 6; Start 10/08/18 at 16:00 Morphine Sulfate (morphine) 2 mg Q4H PRN IV .SEVERE PAIN 7-10 Last administered on 10/09/18at 09:27; Admin Dose 2 MG; Start 10/08/18 at 16:00 Docusate Sodium (Colace) 100 mg Q12H PRN PO .CONSTIPATION; Start 10/08/18 at 16:00 Magnesium Hydroxide (Milk Of Mag) 30 ml DAILY PRN PO .CONSTIPATION; Start 10/08/18 at 16:00 Pantoprazole (Protonix Iv) 40 mg BID IV Last administered on 10/09/18at 09:08; Admin Dose 40 MG; Start 10/08/18 at 21:00 Heparin Sodium (Porcine) (Heparin (5000 Units/1ml)) 5,000 unit Q12 SC Last administered on 10/09/18 09:09; Admin Dose 5,000 UNIT; Start 10/08/18 at 21:00 Lorazepam (Ativan) 0.5 mg Q6H PRN IV ANXIETY Last administered on 10/09/18at 00:20; Admin Dose 0.5 MG; Start 10/08/18 at 16:00 Albuterol/ Ipratropium (Duoneb) 3 ml Q4H RESP THERAPY PRN HHN SHORTNESS OF BREATH; Start 10/08/18 at 16:00 Hydralazine HCl (Apresoline) 10 mg Q6H PRN IV ELEVATED BLOOD PRESSURE; Start 10/08/18 at 16:00 Nitroglycerin (Nitroglycerin (Sl Tab) 0.4 Mg) 1 tab Q5M PRN SL ANGINA; Start 10/08/18 at 16:00 Ondansetron HCl 8 mg/Sodium Chloride 54 ml @ 216 mls/hr Q6H PRN IV NAUSEA AND/OR VOMITING; Start 10/08/18 at 16:00 Dextrose/Sodium Chloride 1,000 ml @ 100 mls/hr Q10H IV Last administered on 10/09/18at 07:19; Admin Dose 100 MLS/HR; Start 10/09/18 at 07:00 ABEBE SELLERS Oct 09, 2018 12:46
--- NOTE | 2018-10-09 13:18 | PN ---
Date/Time of Note Date/Time of Note DATE: 10/09/18 TIME: 13:03 Assessment/Plan VTE Prophylaxis Risk score (from Ns)>0 risk: 3 SCD applied (from Ns): No SCD contraindicated: low risk/ambulating Pharmacological prophylaxis: NA/contraindicated Pharm contraindication: low risk/ambulating Lines/Catheters IV Catheter Type (from [facility]): Saline Lock Urinary Cath still in place: No Assessment/Plan Hospital Course Summary Assessment and Plan: Assessment: Questionable contained duodenal ulcer perforation Leukocytosis - resolved History of duodenal ulcer, gastritis -Pathology positive for H. pylori-upon discharge will provide prescription for H. pylori treatment Marijuana use Current Smoker Previous pancreatic duct dilatation on CT in Apr - not appreciated on recent imaging Plan: Repeat CT A/P - again states Remonstration of a 2.6 cm structure at the distal stomach and proximal duodenum with fluid and air. Evaluation is limited due to suboptimal enteric contrast opacification at this region. Findings may represent contained ulcer perforation or duodenal diverticulum. Will start patient on clear liquid diet today- NPO after midnight EGD tomorrow Seen in collaboration with Dr. Villegas Subjective: Course reviewed with nursing staff Patient interviewed and examined All labs, imaging and other results reviewed The patient feels better, no over night events Discussed results with patient and plan for EGD tomorrow she verbalized understanding and is agreeable PHYSICAL EXAMINATION: GENERAL:Alert & oriented x 3, in no acute distress SKIN: No lesions HEAD: Normocephalic, atraumatic, no tenderness. EYES: Pupils equal reactive to light and accommodation, no discharge. EARS/NOSE AND THROAT: Ears normal, nose normal. NECK: Supple, no masses, thyroid normal. CHEST: Inspection within normal limits. CARDIOVASCULAR: Heart: Regular rate and rhythm RESPIRATORY: Lungs clear to auscultation GASTROINTESTINAL AND LIVER: Abdomen: Soft,upper abdominal pain- improved, non- distended, no hernias, no masses, no organomegaly, no ascites, no guarding, no rebound tenderness, normoactive bowel sounds. Rectal: Deferred. EXTREMITIES: No cyanosis, clubbing or edema. Result Diagram: 10/09/18 0434 10/09/18 0434 Results 24hrs Laboratory Tests Test 10/09/18 04:34 White Blood Count 7.8 # Red Blood Count 4.01 #L Hemoglobin 11.3 #L Hematocrit 37.1 Mean Corpuscular Volume 92.5 Mean Corpuscular Hemoglobin 28.2 L Mean Corpuscular Hemoglobin Concent 30.5 L Red Cell Distribution Width 18.2 H Platelet Count 294 # Mean Platelet Volume 10.2 Immature Granulocytes % 0.300 Neutrophils % 59.2 Lymphocytes % 30.6 Monocytes % 6.9 Eosinophils % 2.4 Basophils % 0.6 Nucleated Red Blood Cells % 0.0 Immature Granulocytes # 0.020 Neutrophils # 4.6 Lymphocytes # 2.4 Monocytes # 0.5 Eosinophils # 0.2 Basophils # 0.1 Nucleated Red Blood Cells # 0.0 Sodium Level 138 Potassium Level 4.1 Chloride Level 103 Carbon Dioxide Level 27 Anion Gap 8 Blood Urea Nitrogen 23 H Creatinine 0.83 Est Glomerular Filtrat Rate mL/min > 60 Glucose Level 47 #*L Hemoglobin A1c 5.7 Calcium Level 8.6 Phosphorus Level 4.0 Magnesium Level 1.9 Triglycerides Level 87 Cholesterol Level 145 LDL Cholesterol, Calculated 95 HDL Cholesterol 33 L Cholesterol/HDL Ratio 4.3 Thyroid Stimulating Hormone (TSH) 2.090 Exam/Review of Systems Exam Vitals Vital Signs Date Temp Pulse Resp B/P (MAP) Pulse Ox O2 O2 Flow FiO2 Time Delivery Rate 10/09/18 98.5 81 16 98/73 (81) 90 07:11 10/09/18 Room Air 05:00 Intake and Output 10/08/18 10/08/18 10/09/18 1515:00 23:00 07:00 IntakeIntake Total 800 ml BalanceBalance 800 ml Results Results 24hrs Laboratory Tests Test 10/09/18 04:34 White Blood Count 7.8 # Red Blood Count 4.01 #L Hemoglobin 11.3 #L Hematocrit 37.1 Mean Corpuscular Volume 92.5 Mean Corpuscular Hemoglobin 28.2 L Mean Corpuscular Hemoglobin Concent 30.5 L Red Cell Distribution Width 18.2 H Platelet Count 294 # Mean Platelet Volume 10.2 Immature Granulocytes % 0.300 Neutrophils % 59.2 Lymphocytes % 30.6 Monocytes % 6.9 Eosinophils % 2.4 Basophils % 0.6 Nucleated Red Blood Cells % 0.0 Immature Granulocytes # 0.020 Neutrophils # 4.6 Lymphocytes # 2.4 Monocytes # 0.5 Eosinophils # 0.2 Basophils # 0.1 Nucleated Red Blood Cells # 0.0 Sodium Level 138 Potassium Level 4.1 Chloride Level 103 Carbon Dioxide Level 27 Anion Gap 8 Blood Urea Nitrogen 23 H Creatinine 0.83 Est Glomerular Filtrat Rate mL/min > 60 Glucose Level 47 #*L Hemoglobin A1c 5.7 Calcium Level 8.6 Phosphorus Level 4.0 Magnesium Level 1.9 Triglycerides Level 87 Cholesterol Level 145 LDL Cholesterol, Calculated 95 HDL Cholesterol 33 L Cholesterol/HDL Ratio 4.3 Thyroid Stimulating Hormone (TSH) 2.090 Medications Medication Current Medications Ondansetron HCl (Zofran Inj) 4 mg BRIDGE ORDER PRN IV NAUSEA/VOMITING; Start 10/08/18 at 14:00; Stop 10/09/18 at 13:59 Acetaminophen (Tylenol Tab) 650 mg ER BRIDGE PRN PO .MILD PAIN 1-3 OR TEMP; Start 10/08/18 at 14:00; Stop 10/09/18 at 13:59 IV Flush (NS 3 ml) 3 ml PER PROTOCOL IV ; Start 10/08/18 at 16:00 Metoclopramide HCl (Reglan) 10 mg Q6H PRN IV NAUSEA/VOMITING; Start 10/08/18 at 16:00 Acetaminophen (Tylenol Tab) 650 mg Q6H PRN PO .PAIN 1-3 OR TEMP; Start 10/08/18 at 16:00 Acetaminophen/ Hydrocodone Bitart ([place] (5/325)) 1 tab Q6H PRN PO .MOD PAIN 4- 6; Start 10/08/18 at 16:00 Morphine Sulfate (morphine) 2 mg Q4H PRN IV .SEVERE PAIN 7-10 Last administered on 10/09/18at 09:27; Admin Dose 2 MG; Start 10/08/18 at 16:00 Docusate Sodium (Colace) 100 mg Q12H PRN PO .CONSTIPATION; Start 10/08/18 at 16:00 Magnesium Hydroxide (Milk Of Mag) 30 ml DAILY PRN PO .CONSTIPATION; Start 10/08/18 at 16:00 Pantoprazole (Protonix Iv) 40 mg BID IV Last administered on 10/09/18at 09:08; Admin Dose 40 MG; Start 10/08/18 at 21:00 Heparin Sodium (Porcine) (Heparin (5000 Units/1ml)) 5,000 unit Q12 SC Last administered on 10/09/18at 09:09; Admin Dose 5,000 UNIT; Start 10/08/18 at 21:00 Lorazepam (Ativan) 0.5 mg Q6H PRN IV ANXIETY Last administered on 10/09/18at 00:20; Admin Dose 0.5 MG; Start 10/08/18 at 16:00 Albuterol/ Ipratropium (Duoneb) 3 ml Q4H RESP THERAPY PRN HHN SHORTNESS OF BREATH; Start 10/08/18 at 16:00 Hydralazine HCl (Apresoline) 10 mg Q6H PRN IV ELEVATED BLOOD PRESSURE; Start 10/08/18 at 16:00 Nitroglycerin (Nitroglycerin (Sl Tab) 0.4 Mg) 1 tab Q5M PRN SL ANGINA; Start 10/08/18 at 16:00 Ondansetron HCl 8 mg/Sodium Chloride 54 ml @ 216 mls/hr Q6H PRN IV NAUSEA AND/OR VOMITING; Start 10/08/18 at 16:00 Dextrose/Sodium Chloride 1,000 ml @ 100 mls/hr Q10H IV Last administered on 10/09/18at 07:19; Admin Dose 100 MLS/HR; Start 10/09/18 at 07:00 Nicotine (Nicoderm 14 Mg/ 24hr) 1 patch DAILY TRANSDERM ; Start 10/09/18 at 13:00 ; Status UNV Ceftriaxone Sodium 50 ml @ 100 mls/hr Q24H IVPB ; Start 10/09/18 at 13:00; Status UNV TAJ COMBS Oct 09, 2018 13:15
[2018-10-09] MEDS: CEFTRIAXONE 1 GM/50 ML (PMX) 50 ML IVPB SCH (13:38)
[2018-10-09] MEDS: NICOTINE (14 MG/24 HR) PATCH TRANSDERM SCH (13:39)
[2018-10-09 14:39] VITALS: BP 133/90; PULSE 92; RESP 17
[2018-10-09] MEDS: HYDROCODONE/APAP (5/325) TAB PO PRN ×2 (15:48→22:49)
[2018-10-09 19:15] VITALS: BP 91/43; PULSE 75; RESP 18
[2018-10-10] MEDS: morphine 2 MG INJ IV PRN ×5 (00:24→21:20)
[2018-10-10 02:11] VITALS: BP 113/58; PULSE 81; RESP 18
[2018-10-10] MEDS: DEXTROSE 5%-0.45% NACL 1,000 ML IV SCH ×3 (03:00→23:00)
[2018-10-10 07:23] VITALS: BP 130/89; PULSE 82; RESP 18
[2018-10-10] MEDS: PANTOPRAZOLE 40 MG INJ IV SCH ×2 (08:13→21:14)
[2018-10-10] MEDS: HEPARIN 5,000 UNIT/1 ML VIAL SC SCH ×2 (09:00→21:12)
[2018-10-10] MEDS: NICOTINE (14 MG/24 HR) PATCH TRANSDERM SCH (09:52)
[2018-10-10 12:49] VITALS: BP 107/53; PULSE 70; RESP 18
--- NOTE | 2018-10-10 13:01 | PN ---
Date/Time of Note Date/Time of Note DATE: 10/10/18 TIME: 13:00 Assessment/Plan VTE Prophylaxis Risk score (from Ns)>0 risk: 1 SCD applied (from Ns): No SCD contraindicated: other Pharmacological prophylaxis: heparin Lines/Catheters IV C[facility]ter Type (from [facility]): Peripheral IV Urinary Cath still in place: No Assessment/Plan Hospital Course S: Patient still having some abdominal pain, seen by GI team yesterday. Waiting for EGD likely later today. N.p.o. presently. O: VS- see below PE: Constitutional: lying in bed, no acute distress Head: normocephalic, atraumatic Eyes: EOMI, PERRL Respiratory: clear to auscultation, normal air movement Cardiovascular: S1, S2 heard Gastrointestinal: soft, some tenderness to palpation, positive guarding, no rebound Extremities: no bilateral lower extremity edema Neuro: No focal deficits A. CT scan abdomen and pelvis with IV contrast October 08, 2018: IMPRESSION: 1. FLUID-FILLED DISTENSION OF THE STOMACH. THERE IS EDEMATOUS THICKENING OF THE HANSEN OF THE DISTAL STOMACH/PYLORUS, WITH SURROUNDING FLUID. THERE IS A 2.7 CM FOCAL POUCH, CONTAINING FLUID AND AIR, WITH COMMUNICATION WITH THE WALL OF THE PYLORUS AND FINDINGS MAY REPRESENT ULCERATION OR CONTAINED PERFORATION. RECOMMEND FOLLOW-UP UPPER GI ENDOSCOPY. MALIGNANCY IS NOT COMPLETELY EXCLUDED. THERE IS PROBABLE AT LEAST PARTIAL GASTRIC OUTLET OBSTRUCTION. 2. No evidence of bowel obstruction. Stool filled loops of large bowel suggestive of constipation. The appendix is within normal limits. 3. Status post hysterectomy. 4. Several fluid filled loops of small bowel within the lower abdomen/pelvis which are mildly distended, probably ileus. B. CT Abdomen and Pelvis with intravenous contrast October 09, 2018: IMPRESSION: Redemonstration of a 2.6 cm structure at the distal stomach and proximal duodenum with fluid and air. Evaluation is limited due to suboptimal enteric contrast opacification at this region. Findings may represent contained ulcer perforation or duodenal diverticulum. Again, this may be further evaluated with upper endoscopy. No significant interval change. Assessment and plan: 52-year-old female past medical history of calcific pancreatitis, prior duodenal ulcer, esophagitis who presents with abdominal pain, nausea vomiting, with contained perforation of the stomach area found on CT abdomen pelvis. #Abdominal pain: Again likely secondary to the duodenal ulcer with contained perforation found on the CT scan. Repeat CT scan abdomen pelvis with IV contrast results from yesterday noted as well. Patient also has a prior history of duodenal ulcer. -For now continue to keep patient n.p.o., and continue IV fluids, antiemetic medications -Follow-up recommendations with the GI consult -again likely for EGD later today, follow final GI recommendations on this #Prior calcific pancreatitis: Lipase levels are normal -Monitor for now, see above, keep n.p.o. for now #Esophagitis: Diagnosed on her last admission in April 2018 -Again monitor, follow further GI recommendations #Apparent smoking history: Counseled on cessation, nicotine patch Result Diagram: 10/10/18 0436 10/10/18 0436 Results 24hrs Laboratory Tests Test 10/10/18 04:36 White Blood Count 5.3 # Red Blood Count 3.61 L Hemoglobin 10.1 L Hematocrit 32.9 L Mean Corpuscular Volume 91.1 Mean Corpuscular Hemoglobin 28.0 L Mean Corpuscular Hemoglobin Concent 30.7 L Red Cell Distribution Width 17.6 H Platelet Count 268 Mean Platelet Volume 10.1 Immature Granulocytes % 0.200 Neutrophils % 47.0 Lymphocytes % 39.7 Monocytes % 8.3 Eosinophils % 4.0 Basophils % 0.8 Nucleated Red Blood Cells % 0.0 Immature Granulocytes # 0.010 Neutrophils # 2.5 Lymphocytes # 2.1 Monocytes # 0.4 Eosinophils # 0.2 Basophils # 0.0 Nucleated Red Blood Cells # 0.0 Sodium Level 140 Potassium Level 3.7 Chloride Level 104 Carbon Dioxide Level 27 Anion Gap 9 Blood Urea Nitrogen 14 # Creatinine 0.67 Est Glomerular Filtrat Rate mL/min > 60 Glucose Level 99 # Calcium Level 8.5 Exam/Review of Systems Exam Vitals Vital Signs Date Temp Pulse Resp B/P (MAP) Pulse Ox O2 O2 Flow FiO2 Time Delivery Rate 10/10/18 97.1 70 18 107/53 100 Room Air 12:49 (71) Intake and Output 10/09/18 10/09/18 10/10/18 1515:00 23:00 07:00 IntakeIntake Total 350 ml 800 ml BalanceBalance 350 ml 800 ml Results Results 24hrs Laboratory Tests Test 10/10/18 04:36 White Blood Count 5.3 # Red Blood Count 3.61 L Hemoglobin 10.1 L Hematocrit 32.9 L Mean Corpuscular Volume 91.1 Mean Corpuscular Hemoglobin 28.0 L Mean Corpuscular Hemoglobin Concent 30.7 L Red Cell Distribution Width 17.6 H Platelet Count 268 Mean Platelet Volume 10.1 Immature Granulocytes % 0.200 Neutrophils % 47.0 Lymphocytes % 39.7 Monocytes % 8.3 Eosinophils % 4.0 Basophils % 0.8 Nucleated Red Blood Cells % 0.0 Immature Granulocytes # 0.010 Neutrophils # 2.5 Lymphocytes # 2.1 Monocytes # 0.4 Eosinophils # 0.2 Basophils # 0.0 Nucleated Red Blood Cells # 0.0 Sodium Level 140 Potassium Level 3.7 Chloride Level 104 Carbon Dioxide Level 27 Anion Gap 9 Blood Urea Nitrogen 14 # Creatinine 0.67 Est Glomerular Filtrat Rate mL/min > 60 Glucose Level 99 # Calcium Level 8.5 Medications Medication Current Medications IV Flush (NS 3 ml) 3 ml PER PROTOCOL IV ; Start 10/08/18 at 16:00 Metoclopramide HCl (Reglan) 10 mg Q6H PRN IV NAUSEA/VOMITING; Start 10/08/18 at 16:00 Acetaminophen (Tylenol Tab) 650 mg Q6H PRN PO .PAIN 1-3 OR TEMP; Start 10/08/18 at 16:00 Acetaminophen/ Hydrocodone Bitart ([place] (5/325)) 1 tab Q6H PRN PO .MOD PAIN 4- 6 Last administered on 10/09/18at 22:49; Admin Dose 1 TAB; Start 10/08/18 at 16:00 Morphine Sulfate (morphine) 2 mg Q4H PRN IV .SEVERE PAIN 7-10 Last administered on 10/10/18at 09:52; Admin Dose 2 MG; Start 10/08/18 at 16:00 Docusate Sodium (Colace) 100 mg Q12H PRN PO .CONSTIPATION; Start 10/08/18 at 16:00 Magnesium Hydroxide (Milk Of Mag) 30 ml DAILY PRN PO .CONSTIPATION; Start 10/08/18 at 16:00 Pantoprazole (Protonix Iv) 40 mg BID IV Last administered on 10/10/18at 08:13; Admin Dose 40 MG; Start 10/08/18 at 21:00 Heparin Sodium (Porcine) (Heparin (5000 Units/1ml)) 5,000 unit Q12 SC Last administered on 10/09/18at 20:55; Admin Dose 5,000 UNIT; Start 10/08/18 at 21:00 Lorazepam (Ativan) 0.5 mg Q6H PRN IV ANXIETY Last administered on 10/09/18at 00:20; Admin Dose 0.5 MG; Start 10/08/18 at 16:00 Albuterol/ Ipratropium (Duoneb) 3 ml Q4H RESP THERAPY PRN HHN SHORTNESS OF BREATH; Start 10/08/18 at 16:00 Hydralazine HCl (Apresoline) 10 mg Q6H PRN IV ELEVATED BLOOD PRESSURE; Start 10/08/18 at 16:00 Nitroglycerin (Nitroglycerin (Sl Tab) 0.4 Mg) 1 tab Q5M PRN SL ANGINA; Start 10/08/18 at 16:00 Ondansetron HCl 8 mg/Sodium Chloride 54 ml @ 216 mls/hr Q6H PRN IV NAUSEA AND/OR VOMITING; Start 10/08/18 at 16:00 Dextrose/Sodium Chloride 1,000 ml @ 100 mls/hr Q10H IV Last administered on 10/09/18at 20:53; Admin Dose 100 MLS/HR; Start 10/09/18 at 07:00 Nicotine (Nicoderm 14 Mg/ 24hr) 1 patch DAILY TRANSDERM Last administered on 10/10/18at 09:52; Admin Dose 1 PATCH; Start 10/09/18 at 13:00 Ceftriaxone Sodium 50 ml @ 100 mls/hr Q24H IVPB Last administered on 10/09/18at 13:38; Admin Dose 100 MLS/HR; Start 10/09/18 at 13:00 ABEBE SELLERS Oct 10, 2018 13:01
[2018-10-10] MEDS ORDERED: LIDOCAINE 2% (SDV) 5 ML INJ ONE (13:59)
[2018-10-10] MEDS ORDERED: PROPOFOL 20 ML ONE (13:59)
[2018-10-10] MEDS ORDERED: MIDAZOLAM 1 MG/ML 2 ML INJ ONE (14:00)
[2018-10-10] MEDS ORDERED: LIDOCAINE 4% SOLUTION 50 ML BTL ONE (14:00)
[2018-10-10] MEDS ORDERED: FENTAnyl 50 MCG/ML VIAL ONE (14:00)
[2018-10-10] MEDS ORDERED: ETOMIDATE 20 MG INJ ONE (14:00)
--- NOTE | 2018-10-10 14:18 | PREAC ---
Date/Time of Note Date/Time of Note DATE: 10/10/18 TIME: 14:16 Anesthesia Eval and Record Evaluation Time Pre-Procedure Interview DATE: 10/10/18 TIME: 14:16 Age 52 Sex female NPO: 8 hrs Preoperative diagnosis duodenal ulcer Planned procedure EGD Past Medical History Past Medical History: Includes GI: Other (pancreatitis ) Psych: Depression, Anxiety Surgery & Anesthesia Issues No known issue Meds Anticoagulation: No Beta Linette within 24 hr: No Reason Beta Linette not given: Pt. not on B-Linette Active Scripts Pantoprazole* (Protonix*) 40 Mg Tablet.dr, 40 MG PO BID, #60 TAB 5 Refills Prov:ABEBE SELLERS S. 05/05/18 Sucralfate* (Carafate*) 1 Gm/10 Ml Susp, 1 GM PO QID for 45 Days, #180 Prov:MARLOABEBE S. 05/05/18 Reported Medications Hydroxyzine Hcl* (Atarax*) 25 Mg Tab, 25 MG PO Q8H PRN for ITCHING, TAB 10/08/18 Escitalopram Oxalate* (Escitalopram Oxalate*) 20 Mg Tablet, 20 MG PO DAILY, #30 TAB 10/08/18 Discontinued Scripts Hydrocodone Bit-Acetaminophen (Hydrocodone Bit-APAP) 5-325MG Tablet, 1 TAB PO Q6H PRN for .MOD PAIN 4-6, #15 TAB Prov:TABATHAABEBE S. 05/05/18 Current Medications IV Flush (NS 3 ml) 3 ml PER PROTOCOL IV ; Start 10/08/18 at 16:00 Metoclopramide HCl (Reglan) 10 mg Q6H PRN IV NAUSEA/VOMITING; Start 10/08/18 at 16:00 Acetaminophen (Tylenol Tab) 650 mg Q6H PRN PO .PAIN 1-3 OR TEMP; Start 10/08/18 at 16:00 Acetaminophen/ Hydrocodone Bitart ([place] (5/325)) 1 tab Q6H PRN PO .MOD PAIN 4- 6 Last administered on 10/09/18at 22:49; Admin Dose 1 TAB; Start 10/08/18 at 16:00 Morphine Sulfate (morphine) 2 mg Q4H PRN IV .SEVERE PAIN 7-10 Last administered on 10/10/18at 09:52; Admin Dose 2 MG; Start 10/08/18 at 16:00 Docusate Sodium (Colace) 100 mg Q12H PRN PO .CONSTIPATION; Start 10/08/18 at 16:00 Magnesium Hydroxide (Milk Of Mag) 30 ml DAILY PRN PO .CONSTIPATION; Start 10/08/18 at 16:00 Pantoprazole (Protonix Iv) 40 mg BID IV Last administered on 10/10/18at 08:13; Admin Dose 40 MG; Start 10/08/18 at 21:00 Heparin Sodium (Porcine) (Heparin (5000 Units/1ml)) 5,000 unit Q12 SC Last administered on 10/09/18at 20:55; Admin Dose 5,000 UNIT; Start 10/08/18 at 21:00 Lorazepam (Ativan) 0.5 mg Q6H PRN IV ANXIETY Last administered on 10/09/18at 00:20; Admin Dose 0.5 MG; Start 10/08/18 at 16:00 Albuterol/ Ipratropium (Duoneb) 3 ml Q4H RESP THERAPY PRN HHN SHORTNESS OF BREATH; Start 10/08/18 at 16:00 Hydralazine HCl (Apresoline) 10 mg Q6H PRN IV ELEVATED BLOOD PRESSURE; Start 10/08/18 at 16:00 Nitroglycerin (Nitroglycerin (Sl Tab) 0.4 Mg) 1 tab Q5M PRN SL ANGINA; Start 10/08/18 at 16:00 Ondansetron HCl 8 mg/Sodium Chloride 54 ml @ 216 mls/hr Q6H PRN IV NAUSEA AND/OR VOMITING; Start 10/08/18 at 16:00 Dextrose/Sodium Chloride 1,000 ml @ 100 mls/hr Q10H IV Last administered on 10/09/18at 20:53; Admin Dose 100 MLS/HR; Start 10/09/18 at 07:00 Nicotine (Nicoderm 14 Mg/ 24hr) 1 patch DAILY TRANSDERM Last administered on 10/10/18at 09:52; Admin Dose 1 PATCH; Start 10/09/18 at 13:00 Ceftriaxone Sodium 50 ml @ 100 mls/hr Q24H IVPB Last administered on 10/09/18at 13:38; Admin Dose 100 MLS/HR; Start 10/09/18 at 13:00 Meds reviewed: Yes Allergies Coded Allergies: No Known Allergy (Unverified , 10/08/18) Allergies Reviewed: Yes Labs/Studies Labs Reviewed: Reviewed by anesthesiologist Result Diagram: 10/10/18 0436 10/10/18 0436 Laboratory Tests 10/10/18 04:36 test: N/A Pre-procedure Exam Last vitals Vital Signs Date Temp Pulse Resp B/P (MAP) Pulse Ox O2 O2 Flow FiO2 Time Delivery Rate 10/10/18 97.1 70 18 107/53 100 Room Air 12:49 (71) Airway: Adequate mouth opening, Adequate thyromental dist Mallampati: Mallampati IV Teeth: Normal Lung: Normal Heart: Normal ASA Physical Status ASA physical status: 3 Emergency: None Pre-operative Attestations Prior to commencing anesthesia and surgery, the patient was re-evaluated, there was verification of: *The patient's identity *The results of appropriate recent lab work and preoperative vital signs *The above evaluation not changing prior to induction *Anesthetic plan, risk benefits, alternative and complications discussed with patient/family; questions answered; patient/family understands, accepts and wishes to proceed. CLOVER ROQUE DO Oct 10, 2018 14:18
[2018-10-10 14:40] VITALS: BP 105/58; PULSE 78; RESP 15
[2018-10-10 15:19] VITALS: BP 129/86; PULSE 87; RESP 17
--- NOTE | 2018-10-10 15:44 | CONS ---
Assessment/Plan Assessment/Plan Assessment/Plan (Daily) Intractable duodenal ulcer with gastric outlet obstruction. Very distended stomach on the CT scan. We will review the results from the upper endoscopy performed today. Patient will probably need antrectomy and gastroenterostomy. The patient will need the stomach decompression for at least 20 to 48 hours. We will schedule the procedure. Consultation Date/Type/Reason Admit Date/Time Date of Consultation: Oct 10, 2018 Type of Consult Surgical Reason for Consultation Intractable duodenal ulcer. Date/Time of Note DATE: 10/10/18 TIME: 15:38 Hx of Present Illness This is a 52-year-old female with past medical history of large duodenal ulcer, previously had an upper endoscopy in April by Dr. Villegas revealed a giant duodenal ulcer, and gastritis biopsies of duodenal ulcer showed no malignancy, dysplasia or viral cytopathic effect identified. Gastric biopsies show no dysplasia or intestinal metaplasia and a Gram stain with an appropriate controls positive for H. pylori organisms. Patient states she was not able to follow-up after discharge in April secondary to insurance reasons she has been on PPI therapy up until about 1 week ago when medication was complicated by police per patient she states she has been having abdominal pain for the past 2 months which is progressively worse and noted severe abdominal pain times the past 48 hours associate with nausea nonbloody vomiting. Here imaging was obtained including a CT abdomen pelvis with IV contrast showing fluid-filled distention of the stomach there is edematous thickening of the [place] of the distal stomach/pylorus with surrounding fluid. There is a 2.7 cm focal pouch containi ng fluid and air communication with the wall of the pylorus and findings may represent ulceration or contained perforation. Per radiology upper endoscopy is recommended. Malignancy is not completely excluded. There is probable at least partial gastric outlet obstruction, no evidence of bowel obstruction. Stool filled loops of large bowel suggests constipation, that is post hysterectomy, several fluid-filled loops of small bowel within the lower abdomen/pelvis were mildly distended with, probably ileus. Evaluation patient continues to complain of abdominal pain with nausea currently no vomiting. EGD was performed today that apparently showed prepyloric and duodenal ulcer. Constitutional: no complaints, improved Eyes: no complaints ENT: no complaints Respiratory: no complaints Cardiovascular: no complaints Gastrointestinal: pain, nausea Genitourinary: no complaints Musculoskeletal: no complaints Skin: no complaints Neurologic: no complaints Endocrine: no complaints Lymphatic: no complaints Psychological: no complaints, nl mood/affect Immunologic: no complaints Past Medical History Home Meds Active Scripts Pantoprazole* (Protonix*) 40 Mg Tablet.dr, 40 MG PO BID, #60 TAB 5 Refills Prov:ABEBE SELLERS S. 05/05/18 Sucralfate* (Carafate*) 1 Gm/10 Ml Susp, 1 GM PO QID for 45 Days, #180 Prov:ABEBE SELLERS S. 05/05/18 Reported Medications Hydroxyzine Hcl* (Atarax*) 25 Mg Tab, 25 MG PO Q8H PRN for ITCHING, TAB 10/08/18 Escitalopram Oxalate* (Escitalopram Oxalate*) 20 Mg Tablet, 20 MG PO DAILY, #30 TAB 10/08/18 Discontinued Scripts Hydrocodone Bit-Acetaminophen (Hydrocodone Bit-APAP) 5-325MG Tablet, 1 TAB PO Q6H PRN for .MOD PAIN 4-6, #15 TAB Prov:ABEBE SELLERS S. 05/05/18 Medications Current Medications IV Flush (NS 3 ml) 3 ml PER PROTOCOL IV ; Start 10/08/18 at 16:00 Metoclopramide HCl (Reglan) 10 mg Q6H PRN IV NAUSEA/VOMITING; Start 10/08/18 at 16:00 Acetaminophen (Tylenol Tab) 650 mg Q6H PRN PO .PAIN 1-3 OR TEMP; Start 10/08/18 at 16:00 Acetaminophen/ Hydrocodone Bitart ([place] (5/325)) 1 tab Q6H PRN PO .MOD PAIN 4- 6 Last administered on 10/09/18at 22:49; Admin Dose 1 TAB; Start 10/08/18 at 16:00 Morphine Sulfate (morphine) 2 mg Q4H PRN IV .SEVERE PAIN 7-10 Last administered on 10/10/18at 09:52; Admin Dose 2 MG; Start 10/08/18 at 16:00 Docusate Sodium (Colace) 100 mg Q12H PRN PO .CONSTIPATION; Start 10/08/18 at 16:00 Magnesium Hydroxide (Milk Of Mag) 30 ml DAILY PRN PO .CONSTIPATION; Start 10/08/18 at 16:00 Pantoprazole (Protonix Iv) 40 mg BID IV Last administered on 10/10/18at 08:13; Admin Dose 40 MG; Start 10/08/18 at 21:00 Heparin Sodium (Porcine) (Heparin (5000 Units/1ml)) 5,000 unit Q12 SC Last administered on 10/09/18at 20:55; Admin Dose 5,000 UNIT; Start 10/08/18 at 21:00 Lorazepam (Ativan) 0.5 mg Q6H PRN IV ANXIETY Last administered on 10/09/18at 00:20; Admin Dose 0.5 MG; Start 10/08/18 at 16:00 Albuterol/ Ipratropium (Duoneb) 3 ml Q4H RESP THERAPY PRN HHN SHORTNESS OF BREATH; Start 10/08/18 at 16:00 Hydralazine HCl (Apresoline) 10 mg Q6H PRN IV ELEVATED BLOOD PRESSURE; Start 10/08/18 at 16:00 Nitroglycerin (Nitroglycerin (Sl Tab) 0.4 Mg) 1 tab Q5M PRN SL ANGINA; Start 10/08/18 at 16:00 Ondansetron HCl 8 mg/Sodium Chloride 54 ml @ 216 mls/hr Q6H PRN IV NAUSEA AND/OR VOMITING; Start 10/08/18 at 16:00 Dextrose/Sodium Chloride 1,000 ml @ 100 mls/hr Q10H IV Last administered on 10/09/18at 20:53; Admin Dose 100 MLS/HR; Start 10/09/18 at 07:00 Nicotine (Nicoderm 14 Mg/ 24hr) 1 patch DAILY TRANSDERM Last administered on 10/10/18at 09:52; Admin Dose 1 PATCH; Start 10/09/18 at 13:00 Ceftriaxone Sodium 50 ml @ 100 mls/hr Q24H IVPB Last administered on 10/09/18at 13:38; Admin Dose 100 MLS/HR; Start 10/09/18 at 13:00 Sucralfate (Carafate Susp) 1 gm QID PO ; Start 10/10/18 at 14:30 Clarithromycin (Biaxin) 500 mg BID PO ; Start 10/10/18 at 14:30 Amoxicillin (Amoxicillin) 1,000 mg BID PO ; Start 10/10/18 at 14:30 Allergies: Coded Allergies: No Known Allergy (Unverified , 10/08/18) Past Surgical History Past Surgical Hx: no surgical history, other (throat surgery 2002) Family History Significant Family History: no pertinent family hx Social History Alcohol Use: occasionally Smoking Status: Current every day smoker Drug Use: marijuana Exam/Review of Systems Exam Vitals Vital Signs Date Temp Pulse Resp B/P (MAP) Pulse Ox O2 O2 Flow FiO2 Time Delivery Rate 10/10/18 98.6 87 17 129/86 99 15:19 (100) 10/10/18 Room Air 14:40 Intake and Output 10/09/18 10/09/18 10/10/18 1515:00 23:00 07:00 IntakeIntake Total 350 ml 800 ml BalanceBalance 350 ml 800 ml Constitutional: alert, oriented, well developed Psych: no complaints, nl mood/affect Head: normocephalic, atraumatic Eyes: nl conjunctiva, EOMI, nl lids, nl sclera, PERRL ENMT: nl external ears & nose, nl lips & teeth, nl nasal mucosa & septum Neck: supple, non-tender Respiratory: clear to auscultation, normal air movement Cardiovascular: regular rate and rhythm, nl pulses Gastrointestinal: soft, nl liver, spleen, non-tender Musculoskeletal: nl extremities to inspection, nl gait and stance Extremities: normal pulses Neurological: RECORD TESTER II-XII intact, nl mental status, nl speech, nl strength Skin: nl turgor; No rash or lesions Lymph: nl lymph nodes Results Result Diagram: 10/10/186 10/10/18 0436 Results 24hrs Laboratory Tests Test 10/10/18 04:36 White Blood Count 5.3 # Red Blood Count 3.61 L Hemoglobin 10.1 L Hematocrit 32.9 L Mean Corpuscular Volume 91.1 Mean Corpuscular Hemoglobin 28.0 L Mean Corpuscular Hemoglobin Concent 30.7 L Red Cell Distribution Width 17.6 H Platelet Count 268 Mean Platelet Volume 10.1 Immature Granulocytes % 0.200 Neutrophils % 47.0 Lymphocytes % 39.7 Monocytes % 8.3 Eosinophils % 4.0 Basophils % 0.8 Nucleated Red Blood Cells % 0.0 Immature Granulocytes # 0.010 Neutrophils # 2.5 Lymphocytes # 2.1 Monocytes # 0.4 Eosinophils # 0.2 Basophils # 0.0 Nucleated Red Blood Cells # 0.0 Sodium Level 140 Potassium Level 3.7 Chloride Level 104 Carbon Dioxide Level 27 Anion Gap 9 Blood Urea Nitrogen 14 # Creatinine 0.67 Est Glomerular Filtrat Rate mL/min > 60 Glucose Level 99 # Calcium Level 8.5 Medications Medication Current Medications IV Flush (NS 3 ml) 3 ml PER PROTOCOL IV ; Start 10/08/18 at 16:00 Metoclopramide HCl (Reglan) 10 mg Q6H PRN IV NAUSEA/VOMITING; Start 10/08/18 at 16:00 Acetaminophen (Tylenol Tab) 650 mg Q6H PRN PO .PAIN 1-3 OR TEMP; Start 10/08/18 at 16:00 Acetaminophen/ Hydrocodone Bitart ([place] (5/325)) 1 tab Q6H PRN PO .MOD PAIN 4- 6 Last administered on 10/09/18at 22:49; Admin Dose 1 TAB; Start 10/08/18 at 16:00 Morphine Sulfate (morphine) 2 mg Q4H PRN IV .SEVERE PAIN 7-10 Last administered on 10/10/18at 09:52; Admin Dose 2 MG; Start 10/08/18 at 16:00 Docusate Sodium (Colace) 100 mg Q12H PRN PO .CONSTIPATION; Start 10/08/18 at 16:00 Magnesium Hydroxide (Milk Of Mag) 30 ml DAILY PRN PO .CONSTIPATION; Start 10/08/18 at 16:00 Pantoprazole (Protonix Iv) 40 mg BID IV Last administered on 10/10/18at 08:13; Admin Dose 40 MG; Start 10/08/18 at 21:00 Heparin Sodium (Porcine) (Heparin (5000 Units/1ml)) 5,000 unit Q12 SC Last administered on 10/09/18at 20:55; Admin Dose 5,000 UNIT; Start 10/08/18 at 21:00 Lorazepam (Ativan) 0.5 mg Q6H PRN IV ANXIETY Last administered on 10/09/18at 00:20; Admin Dose 0.5 MG; Start 10/08/18 at 16:00 Albuterol/ Ipratropium (Duoneb) 3 ml Q4H RESP THERAPY PRN HHN SHORTNESS OF BREATH; Start 10/08/18 at 16:00 Hydralazine HCl (Apresoline) 10 mg Q6H PRN IV ELEVATED BLOOD PRESSURE; Start 10/08/18 at 16:00 Nitroglycerin (Nitroglycerin (Sl Tab) 0.4 Mg) 1 tab Q5M PRN SL ANGINA; Start 10/08/18 at 16:00 Ondansetron HCl 8 mg/Sodium Chloride 54 ml @ 216 mls/hr Q6H PRN IV NAUSEA AND/OR VOMITING; Start 10/08/18 at 16:00 Dextrose/Sodium Chloride 1,000 ml @ 100 mls/hr Q10H IV Last administered on 10/09/18at 20:53; Admin Dose 100 MLS/HR; Start 10/09/18 at 07:00 Nicotine (Nicoderm 14 Mg/ 24hr) 1 patch DAILY TRANSDERM Last administered on 10/10/18at 09:52; Admin Dose 1 PATCH; Start 10/09/18 at 13:00 Ceftriaxone Sodium 50 ml @ 100 mls/hr Q24H IVPB Last administered on 10/09/18at 13:38; Admin Dose 100 MLS/HR; Start 10/09/18 at 13:00 Sucralfate (Carafate Susp) 1 gm QID PO ; Start 10/10/18 at 14:30 Clarithromycin (Biaxin) 500 mg BID PO ; Start 10/10/18 at 14:30 Amoxicillin (Amoxicillin) 1,000 mg BID PO ; Start 10/10/18 at 14:30 KATIE JORGE MD Oct 10, 2018 15:44
[2018-10-10] MEDS: CEFTRIAXONE 1 GM/50 ML (PMX) 50 ML IVPB SCH (15:48)
[2018-10-10] MEDS: SUCRALFATE (100 MG/ML) 10ML CUP PO SCH ×2 (16:51→21:15)
--- NOTE | 2018-10-10 18:05 | PAC ---
Date/Time of Note Date/Time of Note DATE: 10/10/18 TIME: 18:05 Post-Anesthesia Notes Post-Anesthesia Note Last documented vital signs Vital Signs Date Temp Pulse Resp B/P (MAP) Pulse Ox O2 O2 Flow FiO2 Time Delivery Rate 10/10/18 98.6 87 17 129/86 99 15:19 (100) 10/10/18 Room Air 14:40 Activity: WNL Respiratory function: WNL Cardiovascular function: WNL Mental status: Baseline Pain reasonably controlled: Yes Hydration appropriate: Yes Nausea/Vomiting absent: Yes CLOVER ROQUE DO Oct 10, 2018 18:05
[2018-10-10] MEDS: HYDROCODONE/APAP (5/325) TAB PO PRN (18:14)
[2018-10-10] MEDS: CLARITHROMYCIN 500 MG TAB PO SCH ×2 (18:15→21:14)
[2018-10-10] MEDS: AMOXICILLIN 500 MG CAP PO SCH ×2 (18:15→21:14)
[2018-10-10 19:20] VITALS: BP 95/49; PULSE 83; RESP 18
[2018-10-11] MEDS: DEXTROSE 5%-0.45% NACL 1,000 ML IV SCH (01:28)
[2018-10-11] MEDS: morphine 2 MG INJ IV PRN ×2 (01:28→05:20)
[2018-10-11 02:00] VITALS: BP 93/56; PULSE 77; RESP 18
[2018-10-11 08:42] VITALS: BP 99/58; PULSE 82; RESP 18
--- NOTE | 2018-10-11 11:10 | DS ---
Date/Time of Note Date/Time of Note DATE: 10/11/18 TIME: 11:10 Discharge Summary Admission/Discharge Info Admit Date/Time Oct 08, 2018 at 13:35 Discharge Date/Time Oct 11, 2018 at 09:30 Discharge Diagnosis Patient left AMA. Patient Condition: Stable Hx of Present Illness 52-year-old female past medical history of calcific pancreatitis, prior duodenal ulcer, esophagitis who presents with abdominal pain. Patient is also been complaining of nonbilious nonbloody vomiting for the last 2 to 3 days. She is also had decreased p.o. intake including mostly not being able to take in water. Patient denies any upper or lower GI bleeding, no fever no chills, no chest pain no shortness of breath and no dysuria or diarrhea. No recent antibiotics. When she came in today she had CT scan abdomen pelvis performed that showed signs of contained perforation in the stomach which is also fluid-filled and along with wall thickening. A call has been made out to the GI doctor who is going to come and evaluate the patient now. Patient was last treated at our hospital from May 01 February 02, 2019 for similar symptoms. Hospital Course S: Patient still having some abdominal pain, seen by GI team yesterday. Waiting for EGD likely later today. N.p.o. presently. O: VS- see below PE: Constitutional: lying in bed, no acute distress Head: normocephalic, atraumatic Eyes: EOMI, PERRL Respiratory: clear to auscultation, normal air movement Cardiovascular: S1, S2 heard Gastrointestinal: soft, some tenderness to palpation, positive guarding, no rebound Extremities: no bilateral lower extremity edema Neuro: No focal deficits A. CT scan abdomen and pelvis with IV contrast October 08, 2018: IMPRESSION: 1. FLUID-FILLED DISTENSION OF THE STOMACH. THERE IS EDEMATOUS THICKENING OF THE HANSEN OF THE DISTAL STOMACH/PYLORUS, WITH SURROUNDING FLUID. THERE IS A 2.7 CM FOCAL POUCH, CONTAINING FLUID AND AIR, WITH COMMUNICATION WITH THE WALL OF THE PYLORUS AND FINDINGS MAY REPRESENT ULCERATION OR CONTAINED PERFORATION. RECOMMEND FOLLOW-UP UPPER GI ENDOSCOPY. MALIGNANCY IS NOT COMPLETELY EXCLUDED. THERE IS PROBABLE AT LEAST PARTIAL GASTRIC OUTLET OBSTRUCTION. 2. No evidence of bowel obstruction. Stool filled loops of large bowel suggestive of constipation. The appendix is within normal limits. 3. Status post hysterectomy. 4. Several fluid filled loops of small bowel within the lower abdomen/pelvis which are mildly distended, probably ileus. B. CT Abdomen and Pelvis with intravenous contrast October 09, 2018: IMPRESSION: Redemonstration of a 2.6 cm structure at the distal stomach and proximal duodenum with fluid and air. Evaluation is limited due to suboptimal enteric contrast opacification at this region. Findings may represent contained ulcer perforation or duodenal diverticulum. Again, this may be further evaluated with upper endoscopy. No significant interval change. Assessment and plan: 52-year-old female past medical history of calcific pancreatitis, prior duodenal ulcer, esophagitis who presents with abdominal pain, nausea vomiting, with contained perforation of the stomach area found on CT abdomen pelvis. #Abdominal pain: Again likely secondary to the duodenal ulcer with contained perforation found on the CT scan. Repeat CT scan abdomen pelvis with IV contrast results from yesterday noted as well. Patient also has a prior history of duodenal ulcer. -For now continue to keep patient n.p.o., and continue IV fluids, antiemetic medications -Follow-up recommendations with the GI consult -again likely for EGD later today, follow final GI recommendations on this #Prior calcific pancreatitis: Lipase levels are normal -Monitor for now, see above, keep n.p.o. for now #Esophagitis: Diagnosed on her last admission in April 2018 -Again monitor, follow further GI recommendations #Apparent smoking history: Counseled on cessation, nicotine patch Home Meds Active Scripts Pantoprazole* (Protonix*) 40 Mg Tablet.dr, 40 MG PO BID, #60 TAB 5 Refills Prov:ABEBE SELLERS S. 05/05/18 Sucralfate* (Carafate*) 1 Gm/10 Ml Susp, 1 GM PO QID for 45 Days, #180 Prov:ABEBE SELLERS S. 05/05/18 Reported Medications Hydroxyzine Hcl* (Atarax*) 25 Mg Tab, 25 MG PO Q8H PRN for ITCHING, TAB 10/08/18 Escitalopram Oxalate* (Escitalopram Oxalate*) 20 Mg Tablet, 20 MG PO DAILY, #30 TAB 10/08/18 Discontinued Scripts Hydrocodone Bit-Acetaminophen (Hydrocodone Bit-APAP) 5-325MG Tablet, 1 TAB PO Q6H PRN for .MOD PAIN 4-6, #15 TAB Prov:RAABEBE MAYS 05/05/18 Primary Care Provider [facility] Time spent on discharge: > 30 minutes Pending Labs Laboratory Tests Test 10/11/18 04:45 White Blood Count 5.5 10^3/ul (4.8-10.8) Red Blood Count 3.60 10^6/ul (4.20-5.40) Hemoglobin 10.2 g/dl (12.0-16.0) Hematocrit 33.3 % (37.0-47.0) Mean Corpuscular Volume 92.5 fl (82.0-101.0) Mean Corpuscular Hemoglobin 28.3 pg (29.0-33.0) Mean Corpuscular Hemoglobin Concent 30.6 g/dl (32.0-37.0) Red Cell Distribution Width 17.9 % (11.5-14.5) Platelet Count 246 10^3/UL (140-415) Mean Platelet Volume 10.9 fl (7.4-10.4) Immature Granulocytes % 0.200 % (0.001-0.429) Neutrophils % 47.7 % (39.0-77.0) Lymphocytes % 37.5 % (15.0-51.0) Monocytes % 8.2 % (0.0-11.0) Eosinophils % 5.5 % (0.0-7.0) Basophils % 0.9 % (0.0-2.0) Nucleated Red Blood Cells % 0.0 /100WBC (0.0-0.0) Immature Granulocytes # 0.010 10^3/ul (0.0-0.031) Neutrophils # 2.6 10^3/ul (1.6-7.5) Lymphocytes # 2.1 10^3/ul (0.8-2.9) Monocytes # 0.5 10^3/ul (0.3-0.9) Eosinophils # 0.3 10^3/ul (0.0-0.5) Basophils # 0.1 10^3/ul (0.0-0.1) Nucleated Red Blood Cells # 0.0 10^3/ul (0.0-0.0) Sodium Level 142 mmol/L (135-144) Potassium Level 4.4 mmol/L (3.5-5.1) Chloride Level 108 mmol/L (97-110) Carbon Dioxide Level 28 mmol/L (21-31) Anion Gap 6 (5-13) Blood Urea Nitrogen 7 mg/dl (7-20) Creatinine 0.60 mg/dl (0.44-1.00) Est Glomerular Filtrat Rate mL/min > 60 mL/min (>60) Glucose Level 87 mg/dl (70-220) Calcium Level 8.6 mg/dl (8.4-10.2) ABEBE SELLERS Oct 11, 2018 11:10
== END 2018-10-11 09:30 | disposition left against medical advice (07) | DRG 380 ==
LOC: E/R 08:30 → MS1 13:35
PROVIDERS: ADMIT Hospitalist; ATTEND Hospitalist
PROC: 0DB98ZX Excision of Duodenum, Via Natural or Artificial Opening Endoscopic, Diagnostic (ICD-10-PCS; principal; 2018-10-10 12:30)
DX: K26.5 Chronic or unspecified duodenal ulcer with perforation (principal); K85.90 Acute pancreatitis without necrosis or infection, unspecified; K31.1 Adult hypertrophic pyloric stenosis; Z68.1 Body mass index [BMI] 19.9 or less, adult; K20.9 Esophagitis, unspecified; J45.909 Unspecified asthma, uncomplicated; F17.200 Nicotine dependence, unspecified, uncomplicated; F12.90 Cannabis use, unspecified, uncomplicated; R11.2 Nausea with vomiting, unspecified
CPT/HCPCS: 36415; 71045; 74177; 80048; 80053; 80061; 81001; 83036; 83690; 83735; 84100; 84439; 84443; 84484; 85025; 87086; 88305; 88312; 96374; 96375; 96376; C9113; J0696; J1644; J2060; J2250; J2270; J2405; J3010; J7030; J7042; Q9967

== ENCOUNTER 2018-10-26 05:05 | Emergency (ER) | payer OTHER ==
[~2018-10-26] VITALS: Ht 165.1 cm; Wt 48.1 kg
[~2018-10-26 05:05] MED LIST changes: -HYDR-3601 PO
[2018-10-26 05:07] VITALS: Ht 165.1 cm; Wt 48.1 kg
[2018-10-26] MEDS ORDERED: FAMOTIDINE 20 MG INJ IV STA (06:32)
[2018-10-26] MEDS ORDERED: SOD CHLORIDE 0.9% 1,000 ML IV STA (06:32)
[2018-10-26] MEDS ORDERED: ONDANSETRON 4 MG INJ IV STA (06:32)
[2018-10-26] MEDS ORDERED: morphine 4 MG/ML VIAL IV STA ×2 (06:32→08:56)
[2018-10-26 11:10] VITALS: BP 126/66; PULSE 71; RESP 18
--- NOTE | 2018-10-26 12:09 | ERD ---
ER Documentation Chief Complaint Chief Complaint Pt reports Ulcer exacerbation since yesterday HPI 52-year-old female with a history of abdominal pain. Patient had a recent hospitalization for duodenal ulcer with possible contained perforation. Patient states similar pain. Her pain is 8 out of 10, cramping with associated nausea. She denies any chest pain or shortness of breath. ROS All systems reviewed and are negative except as per history of present illness. Medications Home Meds Active Scripts Naloxone HCl nasal spray (Narcan 4 mg/0.1 mL nasal) 4 Mg [place], 4 MG NS .Q2-3MIN for OPIOID OVERDOSE, #2 SPRAY 0 Refills [place] 0.1 mL into one nostril. Repeat with second device into other nostril after 2-3 minutes if no or minimal response Prov:ANA ROBLES MD 10/26/18 Hydrocodone/Acetaminophen ([place] 10-325 Tablet) 1 Each Tablet, 1 TAB PO Q6H PRN for PAIN, #7 TAB Prov:ANA ROBLES MD 10/26/18 Pantoprazole* (Protonix*) 40 Mg Tablet.dr, 40 MG PO BID, #60 TAB 5 Refills Prov:ABEBE SELLERS S. 05/05/18 Sucralfate* (Carafate*) 1 Gm/10 Ml Susp, 1 GM PO QID for 45 Days, #180 Prov:ABEBE SELLERS S. 05/05/18 Reported Medications Hydroxyzine Hcl* (Atarax*) 25 Mg Tab, 25 MG PO Q8H PRN for ITCHING, TAB 10/08/18 Escitalopram Oxalate* (Escitalopram Oxalate*) 20 Mg Tablet, 20 MG PO DAILY, #30 TAB 10/08/18 Allergies Allergies: Coded Allergies: No Known Allergy (Unverified , 10/08/18) PMhx/Soc History of Surgery: Yes (tonsillectomy 2001) Anesthesia Reaction: No Hx Neurological Disorder: No Hx Respiratory Disorders: Yes (asthma) Hx Cardiac Disorders: No Hx Psychiatric Problems: No Hx Miscellaneous Medical Probl: No Hx Alcohol Use: No Hx Substance Use: No Hx Tobacco Use: No Smoking Status: Never smoker FmHx Family History: No diabetes Physical Exam Vitals Vital Signs Date Temp Pulse Resp B/P (MAP) Pulse Ox O2 O2 Flow FiO2 Time Delivery Rate 10/26/18 71 18 126/66 99 Room Air 11:10 (86) 10/26/18 76 19 128/76 100 Room Air 09:10 (93) 10/26/18 98.1 94 17 125/93 96 Room Air 07:10 (104) 10/26/18 97.5 64 24 179/93 100 05:07 (121) Physical Exam General: Uncomfortable Head: Normocephalic, atraumatic. Eyes: Pupils equally reactive, EOM intact ENT: Moist mucous membranes Neck: Supple, no lymphadenopathy Respiratory: Lungs clear bilaterally, no distress Cardiovascular: RRR, no murmurs, rubs, or gallops Abdominal: Soft, mild tenderness to the epigastrium : Deferred MSK: No edema, no unilateral swelling, 5/5 strength Neurologic: Alert and oriented, moving all extremities, normal speech, no focal weakness, no cerebellar signs Skin: No rash Psych: Normal mood Result Diagram: 10/26/18 0654 10/26/18 0654 Results 24 hrs Laboratory Tests Test 10/26/18 06:54 White Blood Count 16.0 10^3/ul Red Blood Count 5.39 10^6/ul Hemoglobin 15.7 g/dl Hematocrit 49.3 % Mean Corpuscular Volume 91.5 fl Mean Corpuscular Hemoglobin 29.1 pg Mean Corpuscular Hemoglobin Concent 31.8 g/dl Red Cell Distribution Width 16.2 % Platelet Count 540 10^3/UL Mean Platelet Volume 10.0 fl Immature Granulocytes % 0.400 % Neutrophils % 82.1 % Lymphocytes % 13.0 % Monocytes % 3.9 % Eosinophils % 0.2 % Basophils % 0.4 % Nucleated Red Blood Cells % 0.0 /100WBC Immature Granulocytes # 0.070 10^3/ul Neutrophils # 13.1 10^3/ul Lymphocytes # 2.1 10^3/ul Monocytes # 0.6 10^3/ul Eosinophils # 0.0 10^3/ul Basophils # 0.1 10^3/ul Nucleated Red Blood Cells # 0.0 10^3/ul Sodium Level 139 mmol/L Potassium Level 5.0 mmol/L Chloride Level 89 mmol/L Carbon Dioxide Level 39 mmol/L Anion Gap 11 Blood Urea Nitrogen 15 mg/dl Creatinine 0.77 mg/dl Est Glomerular Filtrat Rate mL/min > 60 mL/min Glucose Level 155 mg/dl Calcium Level 11.1 mg/dl Total Bilirubin 0.6 mg/dl Direct Bilirubin 0.00 mg/dl Indirect Bilirubin 0.6 mg/dl Aspartate Amino Transf (AST/SGOT) 26 IU/L Alanine Aminotransferase (ALT/SGPT) 14 IU/L Alkaline Phosphatase 95 IU/L Total Protein 9.5 g/dl Albumin 4.9 g/dl Globulin 4.60 g/dl Albumin/Globulin Ratio 1.06 Lipase 59 U/L Serum HCG, Qualitative NEGATIVE Current Medications Medications Dose Sig/Dane Start Time Status Last (Trade) Ordered Route PRN Stop Time Admin Dose Reason Admin Sodium 1,000 ml @ Q1H STAT 10/26/18 DC 10/26/18 Chloride 1,000 mls/hr IV 06:32 07:02 10/26/18 07:31 Morphine 4 mg ONCE STAT 10/26/18 DC 10/26/18 Sulfate IV 06:32 07:01 (morphine) 10/26/18 06:34 Ondansetron 4 mg ONCE STAT 10/26/18 DC 10/26/18 HCl (Zofran IV 06:32 07:01 Inj) 10/26/18 06:34 Famotidine 20 mg ONCE STAT 10/26/18 DC 10/26/18 (Pepcid Iv) IV 06:32 07:01 10/26/18 06:34 Morphine 4 mg ONCE STAT 10/26/18 DC 10/26/18 Sulfate IV 08:56 09:11 (morphine) 10/26/18 08:58 Procedures/MDM EKG, MONITORS, & DIAGNOSTIC IMAGING: CT a/p IMPRESSION: 1. Again noted is a 3.2 cm ulceration arising from the lesser curvature of the gastric antrum/duodenal bulb, with mild adjacent inflammation, similar in appearance to the prior CT - consider endoscopic correlation. No evidence of bowel obstruction, perforation or abscess is identified. 2. Severe pulmonary emphysema. 3. Small nonobstructive right renal calculus, without ureterolithiasis or obstructive uropathy. RPTAT: [facility] INTERPRETATION: I reviewed the laboratory testing and it shows no evidence of acute process MEDICAL DECISION MAKING: Patient's abdominal pain seems to be an exacerbation of her duodenal ulcer. However given the fact that she had recent microperforation CT imaging would be indicated. ER COURSE: * Laboratory testing is reassuring. The patient's pain is improved with narcotic pain medication and Pepcid. Patient CT shows no evidence of changes and no evidence of acute perforation. 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 CONSULTATION: None DISPOSITION PLAN: The patient does not have an identifiable emergent medical condition that warrants inpatient hospitalization at this time. The patient is deemed safe for discharge with outpatient follow-up. We discussed follow up with the patient's primary care doctor within 24 to 48 hours as needed. We also discussed return to the emergency room for worsening symptoms or worsening condition. Outpatient referral: None required Discharge Medications: [place] NARCOTIC MEDICATION: The patient has been prescribed a narcotic medication during this encounter. The patient has been warned about the use of narcotics. The patient should not drive or operate heavy machinery while taking this medication. The patient was also warned about the addictive properties of narcotic medications. Narcan prescription WAS provided given one of the following criteria were met: 1. More than 5 tablets of [place] 10 mg or 10 tablets of [place] 5 mg were prescribed. 2. Concomitant opiate and benzodiazepine prescriptions were provided. 3. There is evidence of prior history of opiate abuse or overdose. Departure Diagnosis: Primary Impression: Duodenal ulcer Additional Impression: Abdominal pain Abdominal location: generalized Qualified Codes: R10.84 - Generalized abdominal pain Condition: Stable Patient Instructions: Duodenitis Additional Instructions: Call your primary care doctor TOMORROW for an appointment during the next 1 WEEK.Tell the financial secretary that you were referred from this facility.See the doctor sooner or return here if your condition worsens before your appointment time. ANA ROBLES MD Oct 26, 2018 12:09
== END 2018-10-26 11:11 | disposition home or self-care (01) ==
LOC: E/R 05:05
DX: K26.9 Duodenal ulcer, unspecified as acute or chronic, without hemorrhage or perforation (principal); J45.909 Unspecified asthma, uncomplicated
CPT/HCPCS: 36415; 74176; 80053; 83690; 84703; 85025; 96374; 96375; 96376; J2270; J2405; J7030; Z7502; Z7610